=== PATIENT | male | born 1945 | race Caucasian/White ===

== ENCOUNTER → 2023-09-18 09:30 | Outpatient (REF) | payer MEDICARE, OTHER, SELFPAY | LOC: RAD 09:30 | PROVIDERS: ATTENDING PHYSICIAN Internal Medicine | DX: R06.09 Other forms of dyspnea (principal) | CPT/HCPCS: 71046 ==

== ENCOUNTER → 2023-11-17 06:20 | Day surgery (SDC) | payer MEDICARE, OTHER, SELFPAY ==
[2023-11-17 07:43] LABS: Glucose - Point of Care 150 mg/dl (70-99)
== END ==
LOC: GI 06:20
PROVIDERS: ATTENDING PHYSICIAN Internal Medicine Gastroenterology
DX: Z12.11 Encounter for screening for malignant neoplasm of colon (principal); K52.9 Noninfective gastroenteritis and colitis, unspecified; D12.7 Benign neoplasm of rectosigmoid junction; K56.699 Other intestinal obstruction unspecified as to partial versus complete obstruction; K63.89 Other specified diseases of intestine; K64.8 Other hemorrhoids; Z86.0100 Personal history of colon polyps, unspecified
CPT/HCPCS: 45380; 88305; 82962

== ENCOUNTER → 2023-12-15 11:13 | Outpatient (REF) | payer MEDICARE, OTHER, SELFPAY | LOC: HWRAD 11:13 | PROVIDERS: ATTENDING PHYSICIAN Internal Medicine Gastroenterology; FAMILY PHYSICIAN Internal Medicine | DX: K52.9 Noninfective gastroenteritis and colitis, unspecified (principal) | CPT/HCPCS: 74178; Q9967 ==

== ENCOUNTER 2024-09-07 20:49 | Inpatient (IN) | payer MEDICARE, OTHER, SELFPAY ==
[2024-09-07 15:36] VITALS: BP 181/93
[2024-09-07 15:45] VITALS: BP 150/76
[2024-09-07 16:00] VITALS: BP 184/148
[2024-09-07 16:32] VITALS: BP 171/103
[2024-09-07 17:01] LABS: Urine Character Clear (Clear)
[2024-09-07 17:05] LABS: Hematocrit 40.8 % (39.0-52.0); Hemoglobin 14.2 g/dL (13.0-18.0); Mean Corp Hgb Conc. 34.8 g/dL (33.0-37.0); Mean Corpuscular Volume 86.8 fL (80.0-94.0); Nucleated Red Blood Cells % 0 % (-); Platelet Count 126 10^3/uL (130-400); Red Cell Dist. Width 13.3 % (11.5-14.5)
[2024-09-07] MEDS: NSS 1000 IV ×2 (17:06→22:53)
[2024-09-07 17:09] LABS: Urine Red Blood Cell 0-2 /HPF (0-2); Urine Squamous Cell 0-2 /LPF (Few); Urine White Cell 0-2 /HPF (0-5)
[2024-09-07 17:12] LABS: Ammonia < 9 umol/L (9-30)
[2024-09-07 17:18] LABS: ALT (SGPT) 457 U/L (0-50); AST (SGOT) 595 U/L (17-59); Albumin 3.7 g/dl (3.5-5.0); Alkaline Phosphatase 1075 U/L (38-126); Blood Urea Nitrogen 31 mg/dl (9-20); Calcium 10.0 mg/dl (8.4-10.2); Carbon Dioxide 23 mmol/L (22-30); Chloride 97 mmol/L (98-107); Glucose 486 mg/dl (70-99); Lipase 754 U/L (23-300); Potassium 4.9 mmol/L (3.5-5.1); Sodium 130 mmol/L (135-145); Total Protein 6.1 g/dl (6.3-8.2); eGFR > 60.00
[2024-09-07 18:55] LABS: Glucose - Point of Care 390 mg/dl (70-99)
--- NOTE | 2024-09-07 19:05 | ED.GENMED ---
History of Present Illness
General
Chief Complaint: Weakness
Source: patient and family (cousin)
Exam Limitations: none
Time Seen by Provider: 09/07/24 15:40
Nursing documentation reviewed up to this point in time: agreed with
History of Present Illness
History of Present Illness:
Patient to ED with complaint of weakness, poor appetite, abd. distention,jaundice, confusion. Patients cousin called him this AM and found him to be confused. SHe went to see him and he reported the weakness, poor appetite, and distention. She
took him to who advised him to come to ED for jaundice. She states she saw him last approx 2 weeks ago. He has lost approx 10 lbs since then. He denies fever/chills, n/v/d.
Past History
Past History
ED Past Medical History: Cancer (CLL, prostate), GERD, Hypercholesterolemia and NIDDM
ED Past Surgical History: Other (Noncontributory )
Social History
Tobacco: Non-smoker
Alcohol: Occasional
Drug: None
Personal:
Living: with family
Employment: Employed
Family History
Family History: Other (Noncontributory )
Review of Systems
Review of Systems
Allergies reviewed?: Yes
All Other Systems: ROS reviewed and negative except as documented in HPI and ROS
Constitutional: Reports weight loss and fatigue
EENT: Reports no symptoms
Respiratory: Reports cough
Cardiac: Reports no symptoms
ABD/GI: Reports anorexia and other (bloating)
: Reports no symptoms
Musculoskeletal: Reports no symptoms
Skin: Reports other (jaundice)
Neurological: Reports weakness and other (confusion)
Psychiatric: Reports no symptoms
Phy Exam
General Physical Exam
General Presentation: mild distress
General age: appears stated age
General Skin: warm and dry
General Habitus: normal
Cardiovascular Exam
Cardiovascular Exam: regular rate/rhythm and no edema
Pulmonary Exam
Pulmonary Exam: no respiratory distress and chest non tender
Breath Sounds: Crackles: left lower and right lower
Gastrointestinal Exam
Gastrointestinal Exam: normal bowel sounds, soft, no organomegaly, no pulsatile mass and no cva tenderness
Palpation: left upper quadrant: Mild tenderness, left lower quadrant: No tenderness, right upper quadrant: Mild tenderness and right lower quadrant: No tenderness
Neurological Exam
Neurological Exam: alert, oriented x3, CN II-XII intact, no motor deficits, no sensory deficits and speech normal
Musculoskeletal Exam
Musculoskeletal Exam: full ROM and neuro vasc intact
Skin Exam
Skin Exam: warm/dry, no rash and jaundice
Psychiatric Exam
Psychiatric Exam: normal mood/affect
Course
Orders/Labs/Results
Orders:
Orders
09/07/24 Dinner
1800 calorie (15 carb) Diabetic
At Your Request: Full Participation
09/07/24 16:36
CT Abd/pelvis W Iv Cont Urgent
Comment:
Reason For Exam: bloating, jaundice
0.9% Sodium Chloride 1000 ml [Nss] 1,000 ml IV BOLUS
09/07/24 16:47
Ammonia Urgent
Complete Blood Count/With Diff Urgent
Comprehensive Metabolic Panel Urgent
Lipase Urgent
Urinalysis Reflex To Culture Urgent
Date Specimen was Collected: 09/07/24
Time Specimen was Collected: 16:46
Urine Microscopic Reflex Cult Urgent
09/07/24 18:58
Insulin Aspart [NOVOLOG vial] 8 units SC NOW STA
09/07/24 19:08
CR Chest - 2 Views Urgent
Comment:
Reason For Exam: cough
09/07/24 20:32
Admit/Transfer Patient As Directed
Co-Sign Provider:
Level of Care: Inpatient admission
Assign to:: Medical/Surgical
Physician / Group: [facility]
Diagnosis: Hyperglycemia
Reason for Hospitalization: Uncontrolled diabetes
Expected length of stay greater than two midnights?: Yes
ELOS- Estimated Length of Stay in days: 2
I certify the patient meets the requirements for IP care: Yes
PRN Pain Medication Management As Directed
May give lesser potent ordered pain med per pt: Yes
preference::
Protocol:: Medication orders for pain may be administered in a
manner that supports deferring to patient preference
when the pt is:
- Requesting an ordered lesser potent pain medication.
Least to most potent pain medications are defined
as: acetaminophen < NSAID < tramadol < opioids
(morphine, oxycodone, hydromorphone).
- Requesting a lesser dose of the same medication IF
ORDERED.
- Requesting a less intrusive route of administration
if both routes are prescribed by the provider (PO <
IV).
09/07/24 20:34
Code Status As Directed
Resuscitation Status: Full Code
09/07/24 22:32
0.9% Sodium Chloride 1000 ml [Nss] 1,000 ml IV 100 mls/hr
Acetaminophen [Tylenol] 650 mg PO Q4HPRN PRN
Amitriptyline [Elavil] 50 mg PO HS
Bisacodyl [Dulcolax] 10 mg RECTAL [id number] PRN
Docusate W/Senna [Senokot-S] 1 tablet PO BIDPRN PRN
Famotidine [Pepcid] 20 mg PO HS
Glimepiride [Amaryl] 2 mg PO NOW STA
Insulin Glargine Lantus [Lantus] 5 units Subcutaneous Insulin Syringe [Syringe-Insulin] 0 unit SC HS
Ondansetron Injectable [Zofran] 4 mg IV Q6HPRN PRN
Polyethylene Glycol Powder [Miralax] 17 grams PO DAILYPRN PRN
09/07/24 22:32
MRI Abdomen [MR Abdomen W/o & W Contrast] Routine
Comment:
Reason For Exam: liver mass, jaundice, hyperbili,
Recent pill cam endoscopy?: No
Mrcp Without MR [MR Mrcp Without] Routine
Comment:
Reason For Exam: cholestatic pattern w/ elevated lip, eval obstruct
Recent pill cam endoscopy?: No
Activity As Directed
Activity Level: With Assistance
Bedside Glucose Monitoring As Directed
Frequency: AC&HS
Vital Signs As Directed
Frequency: Per unit guidelines
DX Deep Vein Thrombosis Video Routine
09/08/24 06:00
Basic Metabolic Panel IN AM
CA 19-9 [S] IN AM
CEA IN AM
Cardiovascular Evaluation IN AM
Complete Blood Count/No Diff IN AM
Hemoglobin A1c [Glycohemoglobin (HgbA1c)] IN AM
LFT [Bjfau-Nwnl-Dvwqdqf] IN AM
Magnesium IN AM
PSA, Total - Screen IN AM
09/08/24 07:30
Insulin Aspart Corrective Mod [Novolog Flexpen-Moderate Resistance] See Protocol SC AC
09/08/24 08:00
Loratadine [Claritin] 10 mg PO DAILY
Pantoprazole [Protonix] 40 mg PO DAILY
09/08/24 18:00
Atorvastatin [Lipitor] 10 mg PO QPM
Enoxaparin Sodium [Lovenox] 40 mg SC QPM
Abnormal Lab Results
09/07/24 09/07/24 09/07/24
16:47 18:53 19:53
Plt Count 126 L 10^3/uL
(130-400)
Abs Immat Gran (auto) 0.2 H 10^3/uL
(0-0.05)
Absolute Lymphs (auto) 0.9 L 10^3/uL
(1.2-3.4)
Absolute Monos (auto) 1.0 H 10^3/uL
(0.1-0.6)
Immature Gran % 2.0 H %
(0-0.5)
Lymphocytes % 11.1 L %
(20.5-51.1)
Monocytes % 13.1 H %
(1.7-9.3)
Sodium 130 L mmol/L
(135-145)
Chloride 97 L mmol/L
(98-107)
BUN 31 H mg/dl
(9-20)
Glucose 486 H* mg/dl
(70-99)
Total Bilirubin 9.9 H mg/dl
(0.2-1.3)
AST 595 H* U/L
(17-59)
ALT 457 H U/L
(0-50)
Alkaline Phosphatase 1075 H U/L
(38-126)
Ammonia < 9 L umol/L
(9-30)
Total Protein 6.1 L g/dl
(6.3-8.2)
Lipase 754 H U/L
(23-300)
Urine Bacteria (Reflex) Few A
(Negative)
Urine Glucose 4+ A
(Negative)
Urine Albumin (Reflex) 1+ A
(Neg - Trace)
POC Glucose 390 H mg/dl 409 H mg/dl
(70-99) (70-99)
09/07/24 16:47
09/07/24 16:47
Vital Signs
Initial and Last Documented VS:
Initial Vital Signs
Temp Pulse Resp BP Pulse Ox
97.6 F 102 16 181/93 98
09/07/24 15:36 09/07/24 15:36 09/07/24 15:36 09/07/24 15:36 09/07/24 15:36
Last Documented Vital Signs
Temp Pulse Resp BP Pulse Ox
97.8 F 102 20 153/90 98
09/07/24 22:35 09/07/24 22:35 09/07/24 22:35 09/07/24 22:35 09/07/24 22:35
*Pulse Oximetry
SaO2: 98
Oxygen Mode of Delivery: Room air
Patient hypoxic: no
*Critical Care Note
Total Time (30-74mins, 75-104mins- exclusive of procedures): Not Applicable
Update Note
Update Note:
Patient to ED for weakness, confusion, jaundice, abd. distention, anorexia, weight loss x 2 weeks. Labs reviewd. Glucose 486. He has not been on insulin in the past, takes glipizide. Given 1L NSS, BS now 390. Given 8u Novolog sq. LFT elevation
noted: AST 595, ALT 457, ALk Phos 1075. Tbili 9.9. Lipase 754. Abdominal CT completed: Numerous low density lesions throughout liver compatible with hepatic metestatic disease, enlarged periportal, partacaval, gastrohepatic ligament regions
likely metastatic lymphadenopathy. Suspicious lesions on thoracic and lumbar spine, concerning for metastatic disease. Patient follows yearly with Dr. Figueroa for distant history of CLL and prostate CA, Dr. Delaney notified by tiger text of new
findings tonight. Due to weakness, confusion, anorexia, hyperglycemia and LFT elevation, will admit to hospitalist service. Patient and cousin are agreeable to plan.
ED Attending Note
-
Portions of this chart may have been created with voice recognition software.� Occasional wrong word or��sound alike� substitutions may have occurred due to the inherent limitations of voice recognition software.
Discharge Plan
Departure
Patient Disposition: Admit
Date of Disposition: 09/07/24
Time of Disposition: 19:24
Presentation/result/management discussed w/ accepting MD/DO: Hospitalist
Patient with high blood pressure during this ER visit?: No
Condition: Fair
Covid-19: Not Applicable
Discharge Problem:
Weakness, Acute hyperglycemia, Elevated LFTs, Metastatic carcinoma to liver
Interventions
Interventions:
*Risk Screen - Suicide Last Done: 09/07/24 17:12
*General Assessment Last Done: 09/07/24 17:12
*Neglect/Abuse Screening Last Done: 09/07/24 17:12
*ED- Fall Risk Assessment Last Done: 09/07/24 17:12
*Nursing Disposition Last Done: 09/07/24 22:39
ED- Neurological Assessment Last Done: 09/07/24 17:13
ED- Pulmonary Assessment Last Done: 09/07/24 17:13
Discharge Date and Time
Discharge Date/Time: 09/07/24 22:41
[2024-09-07] MEDS: NOVOLOG vial 8 UNITS SC (19:10)
[2024-09-07 19:59] LABS: Glucose - Point of Care 409 mg/dl (70-99)
--- NOTE | 2024-09-07 20:06 | HPS.HSE ---
Family Physician
-
Family Physician: Mindi Almaraz
Chief Complaint
-
Weakness
History of Present Illness
This is a 79-year-old male with past medical history significant for prior prostate cancer and CLL, GERD, day-dlprjao-wwzkxvwur diabetes and hyperlipidemia who presents to the emergency department with ongoing concern for jaundice, intermittent
confusion poor appetite and weakness.
Patient reported his symptoms to his cousin who found him slightly confused and came to see him. He reported weakness poor appetite and abdominal distention. He also reports some weight loss. Patient says he has been having increased thirst and
increased urine output over the last 2 weeks. Cousin found that patient was jaundiced. She took him to urgent care I will advise him to come to the emergency department for evaluation of the jaundice. He has lost approximately 10 pounds. Denies
having any cough fevers or chills. He denies having any diarrhea. He denies any nausea or vomiting. He denies any urinary symptoms. Reports he has been on standard dose of glimepiride 2 mg without any recent changes in this medication or any
other medication.
In the emergency department his blood pressure was 170/100 with a pulse rate of 98 and was satting 98% on room air. He was afebrile with temp of 97.6. His chest x-ray was clear. CBC was unremarkable. His electrolytes show a sodium of 130
potassium of 4.9 with a bicarb of 23. BUN and creatinine at 31 and 1.1 with a blood glucose of 46. He has elevated total bilirubin to 9.9, AST 500 ALT in 450s and alk phos of over 8000 with a lipase of 750. His UA was clear.
CT of the abdomen pelvis showing numerous low-density lesions throughout the liver, compatible with hepatic metastatic disease.
Enlarged lymph nodes in the periportal, portacaval, and gastrohepatic ligament region, likely neoplastic lymphadenopathy.
Splenomegaly, slightly increased since prior CT. No focal splenic lesions are identified.
Subtle small lytic lesions within the visualized thoracic and lumbar spine, suspicious for bony metastatic disease.
Small densities within the perinephric fat bilaterally, new since prior examination, and suspicious for small neoplastic retroperitoneal implants
Medical History
Past Medical History
Past Medical History: Reports Cancer (CLL, prostate cancer), GERD, Hypercholesterolemia and NIDDM
Past Surgical History: Reports Other
Social History
Tobacco: Non-smoker
Alcohol: Occasional
Drug: None
Personal: Single
Living: Alone
Employment: Retired
Family History
Family History: Not pertinent
Allergies / Home Medications
Allergies reflects when Allergies were last updated in [facility].
Home Medications with original date entered in [facility]
Allergy/Medication List:
Allergies
Allergy/AdvReac Type Severity Reaction Status Date / Time
vancomycin (Vancomycin) Allergy RASH/HAND Verified 09/07/24 15:38
BLANCHING
Home Medications
amitriptyline 50 mg tablet 50 mg PO HS 09/24/09
Omeprazole 40 mg tablet, 40 mg p.o. daily
Famotidine 20 mg tablet, 20 mg p.o. daily
Atorvastatin 10 mg tablet, 10 mg p.o. daily
Glimepiride 2 mg tablets, 2 mg p.o. daily
Review of Systems
-
Constitutional: Reports Weight Loss and Fatigue
EENT: Reports No Symptoms
Respiratory: Reports No Symptoms
Cardiac: Reports No Symptoms
Abdomen/GI: Reports Constipated
: Reports No Symptoms
Musculoskeletal: Reports No Symptoms
Skin: Reports No Symptoms
Neurological: Reports No Symptoms
Endocrine: Reports Polyuria and Polydipsia
Hematologic/Lymphatic: Reports No Symptoms
Psych: Reports No Symptoms
Physical Exam
Vital Signs
Vital Signs
Temp Pulse Resp BP Pulse Ox
97.6 F 98 25 171/103 98
09/07/24 15:36 09/07/24 19:00 09/07/24 19:00 09/07/24 16:32 09/07/24 19:08
Physical Exam
General: No Apparent Distress and Poor Appetite
HEENT: NormoCephalic, Moist mucous membranes, Atraumatic and PERRLA
Respiratory: Clear
Cardiac: S1/S2 and Regular Rhythm
Breast: Deferred by me
GI: Soft, Non Tender, Non Distended and Normal Bowel Sounds
Rectal: Deferred by Provider
Genito-urinary: Deferred by me
Musculoskeletal: No Clubbing, No Cyanosis and No Edema
Skin: Jaundice
Neuro: AO x 3 and Nonfocal/grossly intact
Psych: Calm
Laboratory Results
-
09/07/24 16:47
09/07/24 16:47
Laboratory Results
Total Bilirubin 9.9 mg/dl (0.2-1.3) H 09/07/24 16:47
AST 595 U/L (17-59) H* 09/07/24 16:47
ALT 457 U/L (0-50) H 09/07/24 16:47
Alkaline Phosphatase 1075 U/L (38-126) H 09/07/24 16:47
Lipase 754 U/L (23-300) H 09/07/24 16:47
Data Reviewed
-
Diagnostic Radiology: Image Personally Visualized and interpreted and Report Reviewed by me
CT Scan: Report Reviewed by me
Lab Data: Labs Reviewed by me
Old Records: Reviewed
Impression/Plan
-
IMPRESSION:
79-year-old male with history of CLL, prostate cancer, jfu-mqamnez-fsbuwjelq diabetes on glimepiride who presents to the emergency department with a new/recent episode of jaundice, fatigue, and weakness, poor appetite and weight loss probably
improved this year found to have hyperglycemia without DKA and findings of numerous metastatic lesions on CT scan with lesions found in the liver compatible with hepatic metastatic disease as well as subtle small lytic lesions within the visualized
thoracic and lumbar spine suspicious for bony metastatic disease. There are densities in the perinephric fat bilaterally which are new and suspicious for small neoplastic/retroperitoneal implants. He had a colonoscopy last year with removal of
some polyps. Patient said that his prostate cancer was resected over 20 years ago and did not need radiation or adjuvant chemotherapy.
PLAN:
1. Hyperglycemia w/o DKA -likely ongoing for about 2 weeks but exacerbated by high sugar diet of cake today. slightly dehydrated but not markedly so. Sodium 130 corrects to 136 for hyperglycemia.
- admit to med/surg
- 1 L NS bolus given in ED, will continue IV fluids with NS overnight at 100 ml/hr
- given aspart 8units in ED, continue with sliding scale insulin
- will give 4 units of lantus tonight
- a1c in am
- continue his glimepiride for now
- start metformin
2. Metastatic lesions w/ cholestatic pattern and elevated lipase - Unknown primary but likely hepatic, bony/spine and retroperitoneal mets concerning for prostate recurrence vs new pancreatic or colon ca. Complicated by jaundice without evidence of
extrahepatic biliary obstruction.
- oncology consultation
- check psa, cea, ca 19-9
- mri abd w/ w/o contrast
- biopsy [facility] per oncology
- pain control and antiemetics
DVT PX - lovenox sq
Code status - Full Code
[2024-09-07 21:25] VITALS: BP 162/98
[2024-09-07 22:35] VITALS: BP 153/90; BMI 28.7
[2024-09-07 22:36] LABS: Glucose - Point of Care 370 mg/dl (70-99)
[2024-09-07] MEDS: ELAVIL 50 MG PO (22:48)
[2024-09-07] MEDS: PEPCID 20 MG PO (22:53)
[2024-09-07] MEDS: LANTUS 0.05 UNITS SC (22:53)
[2024-09-07] MEDS: AMARYL 2 MG PO (22:53)
[2024-09-08 01:45] LABS: Glucose - Point of Care 357 mg/dl (70-99)
[2024-09-08 07:43] LABS: Glucose - Point of Care 300 mg/dl (70-99)
[2024-09-08 07:55] VITALS: BP 176/96
[2024-09-08] MEDS: PROTONIX 40 MG PO (08:00)
[2024-09-08] MEDS: CLARITIN 10 MG PO (08:00)
[2024-09-08] MEDS: NOVOLOG FLEXPEN-MODERATE RESISTANCE 7 UNITS SC ×2 (08:17→17:02)
[2024-09-08 08:20] LABS: Hematocrit 38.5 % (39.0-52.0); Hemoglobin 13.3 g/dL (13.0-18.0); Mean Corp Hgb Conc. 34.5 g/dL (33.0-37.0); Mean Corpuscular Volume 87.3 fL (80.0-94.0); Platelet Count 122 10^3/uL (130-400); Red Cell Dist. Width 13.3 % (11.5-14.5)
[2024-09-08 08:46] LABS: ALT (SGPT) 435 U/L (0-50); AST (SGOT) 638 U/L (17-59); Albumin 3.2 g/dl (3.5-5.0); Alkaline Phosphatase 1071 U/L (38-126); Blood Urea Nitrogen 23 mg/dl (9-20); Calcium 9.3 mg/dl (8.4-10.2); Carbon Dioxide 26 mmol/L (22-30); Chloride 103 mmol/L (98-107); Estimated Creatinine Clearance 57 ml/min; Glucose 278 mg/dl (70-99); HDL Cholesterol 36 mg/dl; LDL Cholesterol, Calculated 174 mg/dl; Magnesium 2.1 mg/dl (1.6-2.3); Potassium 4.3 mmol/L (3.5-5.1); Sodium 136 mmol/L (135-145); Total Protein 5.5 g/dl (6.3-8.2); Very Low Density Lipoprotein 47 mg/dl (0-30); eGFR > 60.00
[2024-09-08 09:12] LABS: PSA, Total - Screen < 0.06 ng/ml (0.0-4.0)
[2024-09-08 10:49] VITALS: BMI 28.7
[2024-09-08 10:59] LABS: Glycohemoglobin (HgbA1c) 9.1 % (4.0-5.6)
[2024-09-08] MEDS: NOVOLOG FLEXPEN-MODERATE RESISTANCE 5 UNITS SC (12:03)
[2024-09-08 12:04] LABS: Glucose - Point of Care 292 mg/dl (70-99)
--- NOTE | 2024-09-08 12:31 | CON.ONC ---
Consultation
-
Date Consultation Requested: 09/07/24
Date Consultation Performed: 09/08/24
Requesting Provider: Dr. Hurtado
Performing Provider: Dr. Perry
Reason for Consultation: h/o NHL - new adenopathy - liver lesions
Impression
Impression
abnormal CT imaging - liver lesions, periportal, portacaval, and gastrohepatic ligament lymphadenopathy, splenomegaly, small lytic lesions in thoracic and lumbar spinem, small densities within the perinephric fat bilaterally
abnormal LFTs
obstructive jaundice
CLL
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 Orosco
h/p prostate cancer - s/p prostatectomy
Plan
Plan
1. Abnormal CT - liver lesions, adenopathy - unclear etiology
-MRI abdomen pending
-GI consult - ? EGD/EUS - ERCP
-liver biopsy w/ IR
-await pathology
2. CLL / NHL - tx [id number] w/ Dr. Orosco
-hematologic malignancy is on differential as to etiology of radiographic findings - await pathology
Will continue to follow with you
Patient History
History of Present Illness
79y/o male seen in consultation today regarding new adenopathy and liver lesions appreciated on CT imaging.
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 He is followed by Dr. Orosco as an outpt, and was treated for his low grade NHL in 2016
w/ bendamustine/ rituximab, followed by rituximab maintenance, until 2018. Post-treatment PET/CT in April 2017 was MAKR.
Since that time, he has been followed off therapy.
He presented to the [place] ER on 8 w/ weakness, poor appetite, abdominal distention, jaundice, confusion. Labs in the ER revealed significant LFT abnormalities w/ increased total bilirubin of 9.9 w/ direct bili of 8.2. CT imaging revealed
numerous low-density lesions throughout the liver, compatible with hepatic metastatic disease. Enlarged lymph nodes in the periportal, portacaval, and gastrohepatic ligament region, likely neoplastic lymphadenopathy. Splenomegaly, slightly increased
since prior CT. No focal splenic lesions are identified. Subtle small lytic lesions within the visualized thoracic and lumbar spine, suspicious for bony metastatic disease. Small densities within the perinephric fat bilaterally, new since prior
examination, and suspicious for small neoplastic retroperitoneal implants.
An MRI of the abdomen is pending.
Clinically, he feels slightly better this am. He remains lethargic. No SOB or chest pain. No abdominal pain. No fevers or chills. No skin rash. No night sweats.
Past-Medical/Surgical History
PMH:
CLL - dx 2007
NHL - marginal zone lymphoma - 2014 - tx w/ Dr. Kwesi REID - followed by rituximab maintenance - finished 2017
GERD
Hypercholesterolemia
NIDDM
prostate cancer
RA
zoster
PSH:
prostatectomy - 2005
skin biopsy - 2014
colonoscopy
Social History
Tobacco: Non-smoker
Alcohol: Occasional
Family History
Family History: Not pertinent
Allergies: NKDA
Patient Medication
�Medication �Instructions �Recorded �Confirmed �Last Taken �Type
amitriptyline 50 mg tablet 50 mg PO HS 09/24/09 09/20/18 09/19/18 History
ascorbic acid-bioflavonoids 500 2 tab PO Supplement 09/24/09 09/24/09 09/20/18 History
mg-200 mg tablet
calcium 500 mg-vitamin D3 100 1 ea PO 3XW Supplement 09/24/09 11/18/16 09/20/18 History
unit-vitamin K 40 mcg chewable
tablet
esomeprazole magnesium 40 mg 40 mg PO DAILY Gastrointestinal 09/24/09 11/18/16 09/20/18 History
capsule,delayed release (Nexium) Issue
glucosamine HCl 500 mg tablet 3,000 mg PO TID Supplement 09/24/09 11/18/16 09/19/18 History
loratadine 5 mg disintegrating 5 mg PO DAILY 09/24/09 11/18/16 09/20/18 History
tablet (Claritin RediTabs)
multivit with [id number]-OA-[id number]-omega 2 ea PO DAILY Supplement 09/24/09 11/18/16 09/20/18 History
3,6,9 no.3 400 mcg-300 mcg capsule
(Men's 50+ Advanced Multivitamin)
omega-3 fatty acids 100 mg 200 mg PO DAILY Supplement 09/24/09 11/18/16 09/19/18 History
chewable tablet
Active Medications
Generic Name Dose Route Start Last Admin
Trade Name Freq PRN Reason Stop Dose Admin
Acetaminophen 650 mg 09/07/24 22:32
Acetaminophen 325 Mg Tablet PO 10/05/24 22:31
Q4HPRN PRN
mild pain/LEHMAN/temp> 100.4F
Amitriptyline HCl 50 mg 09/07/24 22:32 09/07/24 22:48
Amitriptyline 50 Mg Tablet PO 10/05/24 22:31 50 mg
HS SELENA Administration
Atorvastatin Calcium 10 mg 09/08/24 18:00
Atorvastatin (Lipitor) 10 Mg Tablet PO 10/06/24 17:59
QPM SELENA
Bisacodyl 10 mg 09/07/24 22:32
Bisacodyl 10 Mg Rectal Suppository RECTAL 10/05/24 22:31
[id number] PRN
constipation
Enoxaparin Sodium 40 mg 09/08/24 18:00
Enoxaparin Sodium 40 Mg/0.4 Ml Syringe SC 10/06/24 17:59
QPM SELENA
Famotidine 20 mg 09/07/24 22:32 09/07/24 22:53
Famotidine 20 Mg Tablet PO 10/05/24 22:31 20 mg
HS SELENA Administration
Insulin Glargine 5 units/ 0.05 mls @ 0 mls/hr 09/07/24 22:32 09/07/24 22:53
Device SC 10/05/24 22:31 0.05 mls
HS SELENA Administration
As Directed
Insulin Aspart 0 units 09/08/24 07:30 09/08/24 12:03
Insulin Aspart Moderate Resistance 300 Units/3 Ml Pen.Injctr SC 10/06/24 07:29 5 units
AC SELENA Administration
Protocol
Loratadine 10 mg 09/08/24 08:00 09/08/24 08:00
Loratadine 10 Mg Tablet PO 10/06/24 07:59 10 mg
DAILY SELENA Administration
Ondansetron HCl 4 mg 09/07/24 22:32
Ondansetron 4 Mg/2 Ml Vial IV 10/05/24 22:31
Q6HPRN PRN
nausea and vomiting
Pantoprazole Sodium 40 mg 09/08/24 08:00 09/08/24 08:00
Pantoprazole 40 Mg Delayed Release Tablet PO 10/06/24 07:59 40 mg
DAILY SELENA Administration
Polyethylene Glycol 17 grams 09/07/24 22:32
Polyethylene Glycol Powder 17 Grams Packet PO 10/05/24 22:31
DAILYPRN PRN
constipation
Senna/Docusate Sodium 1 tablet 09/07/24 22:32
Docusate W/Senna (Elisabet-Colace) Tablet PO 10/05/24 22:31
BIDPRN PRN
constipation
Review of Systems
-
A ROS was performed w/ pertinent findings as per HPI.
Physical Exam
-
General: Well Developed and No Apparent Distress
HEENT: Jaundice
Cardiology: Normal Sinus Rhythm
Pulmonary: Clear
GI: Soft
Extremities: No C/C/E
Neurology: Non Focal
Labs
Lab Results
WBC 7.9 10^3/uL (4.8-10.8) 09/08/24 06:47
RBC 4.41 10^6/uL (4.70-6.10) L 09/08/24 06:47
Hgb 13.3 g/dL (13.0-18.0) 09/08/24 06:47
Hct 38.5 % (39.0-52.0) L 09/08/24 06:47
MCV 87.3 fL (80.0-94.0) 09/08/24 06:47
MCH 30.2 pg (27.0-31.0) 09/08/24 06:47
MCHC 34.5 g/dL (33.0-37.0) 09/08/24 06:47
RDW 13.3 % (11.5-14.5) 09/08/24 06:47
Plt Count 122 10^3/uL (130-400) L 09/08/24 06:47
MPV 10.6 fL (7.4-10.4) H 09/08/24 06:47
Abs Immat Gran (auto) 0.2 10^3/uL (0-0.05) H 09/07/24 16:47
Absolute Neuts (auto) 5.7 10^3/uL (1.4-6.5) 09/07/24 16:47
Absolute Lymphs (auto) 0.9 10^3/uL (1.2-3.4) L 09/07/24 16:47
Absolute Monos (auto) 1.0 10^3/uL (0.1-0.6) H 09/07/24 16:47
Absolute Eos (auto) 0.0 10^3/uL (0-0.7) 09/07/24 16:47
Absolute Basos (auto) 0.0 10^3/uL (0-0.2) 09/07/24 16:47
Immature Gran % 2.0 % (0-0.5) H 09/07/24 16:47
Neutrophils % 73.1 % (42.2-75.2) 09/07/24 16:47
Lymphocytes % 11.1 % (20.5-51.1) L 09/07/24 16:47
Monocytes % 13.1 % (1.7-9.3) H 09/07/24 16:47
Eosinophils % 0.3 % (0-6) 09/07/24 16:47
Basophils % 0.4 % (0-2) 09/07/24 16:47
Creatinine 1.0 mg/dL (0.7-1.3) 09/08/24 06:47
Vital Signs
Vital Signs
Temp Pulse Resp BP Pulse Ox
98.6 F 92 18 176/96 94
09/08/24 07:55 09/08/24 07:55 09/08/24 07:55 09/08/24 07:55 09/08/24 07:55
--- NOTE | 2024-09-08 13:05 | W.PN.HOSP.TC ---
Addendum entered and electronically signed by Veto Morris MD 09/08/24 17:30:
see update note
Original Note:
Today's Communication/Plan
-
MRI abdomen w/ and w/o contrast pending
Sliding scale insulin
Continue to monitor for blood sugar
Assessment / Plan
Assessment / Plan
79 y.o Male with past medical history of chronic lymphocytic leukemia, prostate cancer, GERD, hypercholesterolemia, Spe-Qhnexwb-Epxkremdq Diabetes Mellitus presents to the emergency department with ongoing concern for weakness, jaundice,
intermittent confusion poor appetite, and weight loss. Increased thirst and increased urine output over the last 2 weeks also reported. At ER bp was 170/100. elevated total bilirubin to 9.9, AST 595 ALT in 457� and Alkaline Phosphatase of over 1075
with a lipase of 754. Glucose 486.
#Hyperglycemia (w/o DKA)
#NIDDM
-Increased thirst and increased urine output over the last 2 weeks
-Glucose 486
-Urine glucose 4+
-Sodium 130 ---> 136 for hyperglycemia.�
-Sliding insulin scale
-glimepiride continued
-metformin started
#Elevated LFTs, Metastatic Disease, primary unknown, likely metastatic
Thrombcytopenia 126L
AST 595 ALT in 457� and�ALP 1075 (cholestatic pattern)
Bilirubin 9.9
Lipase of 754
CT scan:
Numerous low-density lesions throughout the liver, compatible with hepatic metastatic disease.
Enlarged lymph nodes in the periportal, portacaval, and gastrohepatic ligament region, likely neoplastic lymphadenopathy.
Subtle small lytic lesions within the visualized thoracic and lumbar spine, suspicious for bony metastatic disease.
Small densities within the perinephric fat bilaterally, new since prior examination, and suspicious for small neoplastic retroperitoneal implants.
Chest X ray
Left hilar shadow appears to be enlarged. Band of increased density in the left perihilar region, suggesting atelectasis.
Subtle increased density in the posterior mid to lower lungs on the lateral view, but poorly defined.
Findings raise concern for a left central neoplasm
-MRI abd w and w/o contrast pending
-PSA, CEA, CA 19-9
-acetaminophen 650 pain control, ondasetrol hcl antiemetic
-Oncology following
-GI consult for EGD/EUS- ERCP?
-IR consult for Liver Biopsy?
DVT prophylaxis- Lovenox
Full Code
Anticipated Discharge: > 48 hours
Subjective/Interval History
-
Date of Service: September 08, 2024
The patient no longer reports shortness of breath and weakness. He says he feels fine. Patient's son was updated on patient's current status.
Objective Data
-
Labs:
Laboratory Results
09/08/24
06:47
WBC 7.9
Hgb 13.3
Hct 38.5 L
Plt Count 122 L
Sodium 136
Potassium 4.3
Chloride 103
Carbon Dioxide 26
BUN 23 H
Creatinine 1.0
Glucose 278 H
Calcium 9.3
Total Bilirubin 9.6 H
AST 638 H*
ALT 435 H
Alkaline Phosphatase 1071 H
Vital Signs:
Vital Signs
Temp Pulse Resp BP Pulse Ox
98.6 F 92 18 176/96 94
09/08/24 07:55 09/08/24 07:55 09/08/24 07:55 09/08/24 07:55 09/08/24 07:55
I&O
09/07/24 09/08/24 09/09/24
06:59 06:59 06:59
Intake Total 1180 / 1180
Output Total 1100 / 1100
Balance 80 / 80
Review of Systems
-
History Source: Patient
Constitutional: Reports Other (Denies weakness, fever, fatigue)
EENT: Reports No Symptoms Reported
Respiratory: Reports Other (Denies cough, trouble breathing)
Cardiac: Reports Other (Denies chest pain, palpitations, orthopnea)
Abdomen/GI: Reports Other (Denies abdominal pain, vomiting acholic stool)
Musculoskeletal: Reports Other (Denies muscle weakness, edema)
Skin: Reports Other
Neuro: Reports Other (Denies weakness, headache, numbness)
Endocrine: Reports Polyuria
Hematologic / Lymphatic: Reports Other (Denies bleeding)
Physical Exam
-
General: No Apparent Distress, Comfortable and Conversant
HEENT: Normocephalic, Atraumatic and Other (Icteric sclera)
Respiratory: Clear to Auscultation and Non Labored Respirations
Cardiac: Regular Rhythm and S1/S2
GI: Soft, Nontender and Distended
Rectal: Deferred by Provider
Genito-urinary: No Costovertebral Tender
Musculoskeletal: No Clubbing, No Cyanosis and No Edema
Skin: Warm, Jaundice and IV Access / Catheter Site
Neuro: AO x 3 and No Motor Deficits
Psych: Calm
--- NOTE | 2024-09-08 14:40 | W.PN.UPDATE ---
Update Note
Progress Note Update
Uncontrolled DM c/b hyperglycemia
-Fortunatly without signs of DKA/HHNK
-IVF
-Short/Long acting insulin
-SSI
-Accucheck
-BG 140-180
-CCDiet
Hyponatremia/Hypochloremia
-Resolved
Hx of CLL
-Treated and in remission
Metastatic lesions with cholestatic pattern w/ sutle lytic lesion (thoracic/lumbar)
-MRI Abdomen confirmed Hep mets
-Local lymph node involvement
-Unclear primary
-CEA pending
-CA19-9 pending
-PSA <0.06
-Will need node bx
-Consult IR
-Can check CT chest
-Daily LFT trend
-+/- bone scan
Will need Onc follow up
[2024-09-08 15:55] VITALS: BP 171/93
[2024-09-08 16:52] LABS: Glucose - Point of Care 310 mg/dl (70-99)
[2024-09-08] MEDS: LIPITOR 10 MG PO (17:02)
[2024-09-08] MEDS: LOVENOX 40 MG SC (17:02)
[2024-09-08] MEDS: NOVOLOG FLEXPEN 5 UNITS SC (17:11)
--- NOTE | 2024-09-08 17:55 | CON.GI ---
Consultation
-
Date/Time Consultation Requested: 09/08/2024, 5pm
Date/Time Consultation Performed: 09/08/2024, 6pm
Requesting Provider: Dr. Anna
Performing Provider: Dr. Denny
Reason for Consultation: elevated bili
Medical History
Chief Complaint / HPI
Chief Complaint: weakness
History of Present Illness:
79-year-old male past medical history as below presenting with jaundice, confusion, weakness, weight loss. Denies abdominal pain or pruritus. Underwent a CT and MRI which show liver lesions, enlarged lymph nodes suggesting shirley mets, gallstones
and gallbladder wall thickening likely reactive. On the MRI, there is no intra or extrahepatic ductal dilation and no pancreatic duct dilation. Bilirubin 9.
Past Medical History
Past Medical History: Cancer (CLL, prostate Ca), GERD, Hypercholesterolemia and NIDDM
Past Surgical History: Urological (prostate)
Social History
Tobacco: Non-Smoker
Alcohol: Occasional
Family History
Family History: Reviewed & Not Pertinent
Allergies / Home Medications
Allergy/AdvReac Type Severity Reaction Status Date / Time
vancomycin (Vancomycin) Allergy RASH/HAND Verified 09/07/24 15:38
BLANCHING
�Medication �Instructions �Recorded
amitriptyline 50 mg tablet 50 mg PO HS 09/24/09
ascorbic acid-bioflavonoids 500 2 tab PO Supplement 09/24/09
mg-200 mg tablet
calcium 500 mg-vitamin D3 100 1 ea PO 3XW Supplement 09/24/09
unit-vitamin K 40 mcg chewable
tablet
esomeprazole magnesium 40 mg 40 mg PO DAILY Gastrointestinal 09/24/09
capsule,delayed release (Nexium) Issue
glucosamine HCl 500 mg tablet 3,000 mg PO TID Supplement 09/24/09
loratadine 5 mg disintegrating 5 mg PO DAILY 09/24/09
tablet (Claritin RediTabs)
multivit with ho-AN-vivksfeq-omega 2 ea PO DAILY Supplement 09/24/09
3,6,9 no.3 400 mcg-300 mcg capsule
(Men's 50+ Advanced Multivitamin)
omega-3 fatty acids 100 mg 200 mg PO DAILY Supplement 09/24/09
chewable tablet
Review of Systems
-
All other systems: Unreviewed
Vital Signs
Temp Pulse Resp BP Pulse Ox
99.0 F 105 16 171/93 95
09/08/24 15:55 09/08/24 15:55 09/08/24 15:55 09/08/24 15:55 09/08/24 15:55
Physical Exam
Exam
General: Well Developed
HEENT: Other (icteric)
Respiratory: Clear
Cardiac: S1/S2
GI: Non Tender and Non Distended
Genito-urinary: No Costovertebral Tender
Musculoskeletal: No Clubbing
Skin: Warm
Neuro: AO x 3
Hematologic/Lymphatic: No Lymphadenopathy
Psych: Calm
Results
WBC 7.9 10^3/uL (4.8-10.8) 09/08/24 06:47
Hgb 13.3 g/dL (13.0-18.0) 09/08/24 06:47
Hct 38.5 % (39.0-52.0) L 09/08/24 06:47
MCV 87.3 fL (80.0-94.0) 09/08/24 06:47
Plt Count 122 10^3/uL (130-400) L 09/08/24 06:47
Absolute Neuts (auto) 5.7 10^3/uL (1.4-6.5) 09/07/24 16:47
Sodium 136 mmol/L (135-145) 09/08/24 06:47
Potassium 4.3 mmol/L (3.5-5.1) 09/08/24 06:47
Chloride 103 mmol/L (98-107) 09/08/24 06:47
Carbon Dioxide 26 mmol/L (22-30) 09/08/24 06:47
BUN 23 mg/dl (9-20) H 09/08/24 06:47
Creatinine 1.0 mg/dL (0.7-1.3) 09/08/24 06:47
Calcium 9.3 mg/dl (8.4-10.2) 09/08/24 06:47
Total Bilirubin 9.6 mg/dl (0.2-1.3) H 09/08/24 06:47
AST 638 U/L (17-59) H* 09/08/24 06:47
ALT 435 U/L (0-50) H 09/08/24 06:47
Alkaline Phosphatase 1071 U/L (38-126) H 09/08/24 06:47
Lipase 754 U/L (23-300) H 09/07/24 16:47
Diagnostic Image Results:
Prior GI Procedures:
EGD:
Colonoscopy:
Assessment / Plan
-
79-year-old male presenting with jaundice, weakness, weight loss, confusion found to have metastatic malignancy unclear etiology. GI asked to consult from oncology regarding role for ERCP. Reviewing imaging, there is no intra or extrahepatic duct
dilation. There is no role for ERCP at this time. I sent a message to oncology and hospital team. GI will sign off. Please call with questions.
-
-
Thank you for consultation and allowing me to participate in the patient's care. Please call the manager distribution GI physician during the after hours with any questions or concerns.
[2024-09-08 21:36] LABS: Glucose - Point of Care 254 mg/dl (70-99)
[2024-09-08] MEDS: PEPCID 20 MG PO (21:45)
[2024-09-08] MEDS: ELAVIL 50 MG PO (21:45)
[2024-09-08] MEDS: LANTUS 0.15 UNITS SC (21:45)
[2024-09-08 23:55] VITALS: BP 178/88
--- NOTE | 2024-09-09 07:01 | W.PN.ONC2 ---
Today's Communication / Plan
-
await pathology for next steps in management
I called son, Richard [phone] to provide updates and answered questions
Impression
Impression
abnormal CT imaging - liver lesions, periportal, portacaval, and gastrohepatic ligament lymphadenopathy, splenomegaly, small lytic lesions in thoracic and lumbar spinem, small densities within the perinephric fat bilaterally
abnormal LFTs-Tbili ~9.6 w transaminitis -jaundice
CLL
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 Orosco
h/p prostate cancer - s/p prostatectomy
uncontrolled DM
Plan
Plan
1. Abnormal CT - liver lesions, adenopathy - unclear etiology
-MRI with innumerable hepatic mets, enlarged periportal and portacaval LNs, splenomegaly, possible spine/rib mets
-Normal PSA, follow Ca 19.9, CEA
-appreciate GI input - no role for EGD/EUS - ERCP
-liver biopsy w/ IR, await pathology
2. CLL / NHL - tx 8866-2207 w/ Dr. Orosco
-hematologic malignancy is on differential as to etiology of radiographic findings - await pathology
Will continue to follow with you
Subjective/Objective
Subjective
no new complaints
afebrile
denies pain or bleeding
Vital Signs:
Vital Signs
Temp Pulse Resp BP Pulse Ox
98.7 F 106 20 178/88 95
09/08/24 23:55 09/08/24 23:55 09/08/24 23:55 09/08/24 23:55 09/08/24 23:55
Lab Results:
Laboratory Data
WBC 7.9 10^3/uL (4.8-10.8) 09/08/24 06:47
Hgb 13.3 g/dL (13.0-18.0) 09/08/24 06:47
Plt Count 122 10^3/uL (130-400) L 09/08/24 06:47
eGFR > 60.00 09/08/24 06:47
Physical Exam
HEENT: Moist Mucous Membranes; No Jaundice
Pulmonary: Other (unlabored)
GI: Soft
Extremities: Pulses Present
[2024-09-09 07:20] VITALS: BP 160/90
[2024-09-09 07:59] LABS: Glucose - Point of Care 248 mg/dl (70-99)
[2024-09-09] MEDS: NOVOLOG FLEXPEN-MODERATE RESISTANCE 3 UNITS SC ×3 (08:13→17:17)
[2024-09-09] MEDS: NOVOLOG FLEXPEN 5 UNITS SC ×2 (08:14→17:18)
[2024-09-09] MEDS: CLARITIN 10 MG PO (08:14)
[2024-09-09] MEDS: PROTONIX 40 MG PO (08:15)
[2024-09-09] MEDS: FLUSH (NSS) 1 FLUSH IV (08:15)
[2024-09-09 08:42] LABS: Hematocrit 38.3 % (39.0-52.0); Hemoglobin 13.5 g/dL (13.0-18.0); Mean Corp Hgb Conc. 35.2 g/dL (33.0-37.0); Mean Corpuscular Volume 86.3 fL (80.0-94.0); Platelet Count 119 10^3/uL (130-400); Red Cell Dist. Width 13.4 % (11.5-14.5)
[2024-09-09 10:10] VITALS: BP 160/94; PULSE 101
[2024-09-09 10:23] LABS: ALT (SGPT) 497 U/L (0-50); Albumin 3.3 g/dl (3.5-5.0); Blood Urea Nitrogen 23 mg/dl (9-20); Calcium 9.3 mg/dl (8.4-10.2); Carbon Dioxide 25 mmol/L (22-30); Chloride 102 mmol/L (98-107); Estimated Creatinine Clearance 57 ml/min; Glucose 240 mg/dl (70-99); Potassium 4.2 mmol/L (3.5-5.1); Sodium 134 mmol/L (135-145); Total Protein 5.6 g/dl (6.3-8.2); eGFR > 60.00
[2024-09-09 10:43] LABS: AST (SGOT) 755 U/L (17-59); Alkaline Phosphatase 1084 U/L (38-126)
[2024-09-09 11:56] LABS: INR 1.18; PT 15.3 Sec (11.4-14.6)
[2024-09-09 12:02] LABS: Glucose - Point of Care 240 mg/dl (70-99)
[2024-09-09] MEDS: NOVOLOG FLEXPEN SC (12:46)
[2024-09-09 15:19] VITALS: BP 173/103
[2024-09-09 15:49] VITALS: BP 173/103
--- NOTE | 2024-09-09 16:12 | CM ---
Alert awake oriented patient who lives alone in a 2 story home with 2 step to enter and 12 steps to bed and bathroom. He is independent in driving and in all activities of daily living.He was offered VN he declined need.He has son and cousin who are
supportive.
No VN hx / No SNF history
Pharmacy [facility]
PCP DR Almaraz
PLAN Home Declined VN
[2024-09-09 16:32] LABS: Glucose - Point of Care 243 mg/dl (70-99)
[2024-09-09 16:35] VITALS: BP 175/98
--- NOTE | 2024-09-09 16:37 | PTCARENOTE ---
Pt AAO x3, but forgetful; confused conversation at times. DOBSON randomly; OOB to chair with assist x1-2/walker, very unsteady w/OOB activity. Pt denies c/o dizziness w/OOB activity. VSS. On room air- pulse ox 96%, no SOB noted. Abd large, rounded,
becca PO; appetite fair. Pt aware of NPO past midnight 09/10 , for IR procedure. Voids clear dark james urine in urinal. Jaundiced, afebrile. Resting in bed at present. Will continue to monitor.
[2024-09-09] MEDS: LOVENOX 40 MG SC (17:18)
[2024-09-09] MEDS: LIPITOR 10 MG PO (17:19)
[2024-09-09] MEDS: ZESTRIL 10 MG PO (17:27)
[2024-09-09 17:33] LABS: CEA 3.50 ng/ml
--- NOTE | 2024-09-09 17:40 | W.PN.HOSP.TC ---
Addendum entered and electronically signed by Timoteo Lala MD 09/09/24 22:33:
Attending Addendum-
I saw and evaluated the patient. I reviewed the resident�s note and agree with findings and plan as documented in the resident�s note. Sub: complains f RUQ pain. no fevers chills. Full 12 point ROS reviewed and negative except as documented Exam:
Vitals reviewed in chart GEN-NAD HEENT- b/l scleral icterus heart RRR lungs clear abd distended pos BS TTP RUQ hepatomegaly LE trace b/l LE edema
Plan:
# Severe Hyperglycemia w/o DKA
-uncontrolled
-cont new Lantus/Novolog 20/06
-SSI
-HBA1c- 9.1
-DM MEATMAN c/s
-DC glimepiride
-start metformin on DC
# Metastatic lesions w/ cholestatic pattern with bony/spine and retroperitoneal mets with jaundice without evidence of extrahepatic biliary obstruction.
- oncology input appreciated
- check psa, cea, ca 19-9 -neg
- MRI abd w/ w/o contrast -Innumerable hepatic metastases.Enlarged periportal and portacaval lymph nodes suggesting shirley metastases. Small nodular foci in the bilateral perinephric fat concerning for metastatic implants.
-Cholelithiasis. Gallbladder wall thickening, likely reactive.
-Splenomegaly
-Signal alteration in the spine and bilateral ribs, most suspicious for osseous metastatic disease.
- liver bx in AM
- pain control and antiemetics
- worsening transaminitis and hyperbilirubinemia - repeat labs in am
- GI - no role for ERCP
- last colon 11/17/23- no malig found on path
# Hyponatremia
- cont to monitor
- repeat BMP in am
# H/O CLL marginal t zone
# HLD- cont atorvastatin
# Depression- cont elavil
# GERD- cont famotidine and pantoprazole
# HTN- cont lisinopril
DVT PX - lovenox sq
Code status - Full Code
ACP
Patient consented to discuss, was alone, d/w son, time spent explanation of advance directives, changes in health status, patient�s health care wishes if the patient becomes unable to make health decisions, goals of care, code status, and prognosis
'ill do what needs to be done'- 16 minutes
Time spent coordinating care, review of plan of care with resident, personally reviewed previous records in EMR, med rec, labs, radiology, d/w nursing, family total time documented is exclusive of any additional time listed that was spent in advance
care planning discussion -�51 minutes
Original Note:
Today's Communication/Plan
-
Continue sliding scale insulin
Continue to monitor for blood sugar
Diabetic Management consult
For liver biopsy tomorrow
Considering Chest CT
Assessment / Plan
Assessment / Plan
79 y.o Male with past medical history of chronic lymphocytic leukemia, prostate cancer, GERD, hypercholesterolemia, Hsp-Ibdtuji-Wvnpylncp Diabetes Mellitus presents to the emergency department with ongoing concern for weakness, jaundice,
intermittent confusion poor appetite, and weight loss. Increased thirst and increased urine output over the last 2 weeks also reported. At ER bp was 170/100. elevated total bilirubin to 9.9, AST 595 ALT in 457� and Alkaline Phosphatase of over 1075
with a lipase of 754. Glucose 486.
#Hyperglycemia (w/o DKA)
#NIDDM
-Polydipsia, polyuria
--Urine glucose 4+
-Glucose 486---->240 today
-Sodium 134 ---> 137 for hyperglycemia.�
-Sliding insulin scale
-Diabetes Management by MEATMAN
-Diabetes Education Consult
-Continue to monitor glucose
#Elevated LFTs, Metastatic Disease, primary unknown, likely metastatic
Thrombcytopenia 126L
AST 595 ALT in 457� and�ALP 1075-----> 755, 497,1084
Total Bilirubin 9.9---> 13.7
Direct bilirubin 8.2
Lipase of 754
CT scan:
Numerous low-density lesions throughout the liver, compatible with hepatic metastatic disease.
Enlarged lymph nodes in the periportal, portacaval, and gastrohepatic ligament region, likely neoplastic lymphadenopathy.
Subtle small lytic lesions within the visualized thoracic and lumbar spine, suspicious for bony metastatic disease.
Small densities within the perinephric fat bilaterally, new since prior examination, and suspicious for small neoplastic retroperitoneal implants.
Chest X ray
Left hilar shadow appears to be enlarged. Band of increased density in the left perihilar region, suggesting atelectasis.
Subtle increased density in the posterior mid to lower lungs on the lateral view, but poorly defined.
Findings raise concern for a left central neoplasm
MRI abd w and w/o contrast yesterday: Innumerable hepatic metastases. Enlarged periportal and portacaval lymph nodes suggesting shirley metastases. Small nodular foci in the bilateral perinephric fat concerning for metastatic implants.
-CEA- 3.50
- for Liver Biopsy tomorrow
-CA 19-9 pending
-to consider chest CT as recommended
-acetaminophen 650mg pain control, ondasetrol hcl antiemetic
-Oncology following
#Hypertension
160-170's / 90-100's
-Lisinopril 10mg started
DVT prophylaxis- Lovenox
Full Code
Anticipated Discharge: > 48 hours
Subjective/Interval History
-
Date of Service: September 09, 2024
The patient reports to still have polydipsia and polyuria. He has no other complaints, but his son noted that the patient had a period of confusion the day prior and difficulty breathing when changing position.�
Objective Data
-
Labs:
Laboratory Results
09/09/24 09/09/24 09/09/24
07:39 09:25 11:39
WBC 7.3
Hgb 13.5
Hct 38.3 L
Plt Count 119 L
PT 15.3 H
INR 1.18
Sodium Cancelled 134 L
Potassium Cancelled 4.2
Chloride Cancelled 102
Carbon Dioxide Cancelled 25
BUN Cancelled 23 H
Creatinine Cancelled 1.0
Glucose Cancelled 240 H
Calcium Cancelled 9.3
Total Bilirubin Cancelled 13.7 H
AST Cancelled 755 H*
ALT Cancelled 497 H
Alkaline Phosphatase Cancelled 1084 H
Vital Signs:
Vital Signs
Temp Pulse Resp BP Pulse Ox
97.9 F 103 16 175/98 96
09/09/24 15:19 09/09/24 17:27 09/09/24 15:19 09/09/24 17:27 09/09/24 16:35
I&O
09/08/24 09/09/24 09/10/24
06:59 06:59 06:59
Intake Total 1180 / 1180 1200 / 1200 990 / 990
Output Total 1100 / 1100 1740 / 1740 850 / 850
Balance 80 / 80 -540 / -540 140 / 140
Review of Systems
-
History Source: Patient
Constitutional: Reports Other (Denies weakness, fever, fatigue)
EENT: Reports No Symptoms Reported
Respiratory: Reports Other (Denies cough)
Cardiac: Reports Other (Denies chest pain, palpitations, orthopnea)
Abdomen/GI: Reports Other (Denies abdominal pain, vomiting, acholic stool)
Genitourinary: Reports Other (Denies difficulty voiding)
Musculoskeletal: Reports Other (Denies muscle weakness, edema)
Neuro: Reports Other (Denies weakness, headache, numbness)
Endocrine: Reports Polyuria
Hematologic / Lymphatic: Reports Other (Denies bleeding)
Physical Exam
-
General: No Apparent Distress, Comfortable and Conversant
HEENT: Normocephalic, Atraumatic and Other (Icteric sclera)
Respiratory: Clear to Auscultation and Non Labored Respirations
Cardiac: Regular Rhythm and S1/S2
GI: Soft, Nontender and Distended
Rectal: Deferred by Provider
Genito-urinary: No Costovertebral Tender
Musculoskeletal: No Clubbing, No Cyanosis and No Edema
Skin: Warm and Jaundice
Neuro: AO x 3 and No Motor Deficits
Psych: Calm
[2024-09-09 22:46] LABS: Glucose - Point of Care 256 mg/dl (70-99)
[2024-09-09 23:44] VITALS: BP 135/82
[2024-09-09] MEDS: ELAVIL 50 MG PO (23:55)
[2024-09-09] MEDS: PEPCID 20 MG PO (23:55)
[2024-09-10] VITALS (17 sets, daily range): BP systolic 106–177; BP diastolic 69–95
[2024-09-10] MEDS: LANTUS SC (00:19)
[2024-09-10] MEDS: LANTUS 0.07 UNITS SC (00:35)
[2024-09-10 00:39] LABS: Glucose - Point of Care 252 mg/dl (70-99)
[2024-09-10 01:46] LABS: CA 19-9 403 U/mL (<=35)
[2024-09-10 06:12] LABS: Glucose - Point of Care 225 mg/dl (70-99)
[2024-09-10] MEDS: NOVOLOG FLEXPEN-MODERATE RESISTANCE 3 UNITS SC ×2 (06:20→13:33)
[2024-09-10] MEDS: NOVOLOG FLEXPEN SC (08:26)
[2024-09-10 08:51] LABS: Hematocrit 41.5 % (39.0-52.0); Hemoglobin 14.4 g/dL (13.0-18.0); Mean Corp Hgb Conc. 34.7 g/dL (33.0-37.0); Mean Corpuscular Volume 86.3 fL (80.0-94.0); Platelet Count 126 10^3/uL (130-400); Red Cell Dist. Width 13.6 % (11.5-14.5)
--- NOTE | 2024-09-10 09:02 | W.PN.ONC2 ---
Today's Communication / Plan
-
follow path
continue GOC
Impression
Impression
abnormal CT imaging - liver lesions, periportal, portacaval, and gastrohepatic ligament lymphadenopathy, splenomegaly, small lytic lesions in thoracic and lumbar spinem, small densities within the perinephric fat bilaterally
abnormal LFTs-Tbili ~9.6 w transaminitis -jaundice
CLL
marginal zone lymphoma - tx 3404-7380 - BR/ rituximab maintenance - Dr. Orosco
h/p prostate cancer - s/p prostatectomy
uncontrolled DM
Plan
Plan
1. Abnormal CT - liver lesions, adenopathy - unclear etiology
-MRI with innumerable hepatic mets, enlarged periportal and portacaval LNs, splenomegaly, possible spine/rib mets
-Normal PSA and CEA, Ca 19.9 elevated 403
-appreciate GI input - no role for EGD/EUS - ERCP
-liver biopsy w/ IR, await pathology
-I called Richard, son to provide updates and answer questions then met with Richard at the bedside to discuss palliative care and comfort focused care. Richard is in the process of advanced care planning with his father. Case management contact information
provided to start setting pt up for help after discharge since he lives alone
2. CLL / NHL - tx [id number] w/ Dr. Orosco
-hematologic malignancy is on differential as to etiology of radiographic findings - await pathology
Will continue to follow with you
Subjective/Objective
Subjective
SOB
Vital Signs:
Vital Signs
Temp Pulse Resp BP Pulse Ox
98.5 F 111 18 147/94 98
09/10/24 07:35 09/10/24 07:35 09/10/24 07:35 09/10/24 07:35 09/10/24 07:35
Lab Results:
Laboratory Data
WBC 10.1 10^3/uL (4.8-10.8) 09/10/24 08:28
Hgb 14.4 g/dL (13.0-18.0) 09/10/24 08:28
Plt Count 126 10^3/uL (130-400) L 09/10/24 08:28
PT 15.3 Sec (11.4-14.6) H 09/09/24 11:39
INR 1.18 09/09/24 11:39
eGFR > 60.00 09/09/24 09:25
Physical Exam
HEENT: Jaundice and Moist Mucous Membranes
Pulmonary: Other (dyspenea with conversation)
GI: Soft and Distended
Extremities: Pulses Present
[2024-09-10] MEDS: ZESTRIL 10 MG PO (09:08)
[2024-09-10] MEDS: CLARITIN 10 MG PO (09:08)
[2024-09-10] MEDS: PROTONIX 40 MG PO (09:08)
--- NOTE | 2024-09-10 09:40 | W.PN.HOSP.TC ---
Addendum entered and electronically signed by Timoteo Lala MD 09/10/24 21:46:
Attending Addendum-
I saw and evaluated the patient. I reviewed the resident�s note and agree with findings and plan as documented in the resident�s note. Sub: seen post liver bx, feels fatigued and hungry. seen with son present. no fevers chills. Full 12 point ROS
reviewed and negative except as documented Exam: Vitals reviewed in chart GEN-NAD jaundiced, HEENT- b/l scleral icterus heart RRR lungs clear abd distended pos BS TTP RUQ +HSM incision RUQ CDI, LE trace b/l LE edema
Plan:
# Severe Hyperglycemia w/o DKA
-uncontrolled
-increase Lantus/Novolog 20/06->23/09
-SSI
-HBA1c- 9.1
-DM MACHINE I CUTTER c/s
-DC glimepiride
# Metastatic lesions w/ dominant cholestatic pattern with possible bony/spine and retroperitoneal mets with jaundice without evidence of extrahepatic biliary obstruction and lung mass
- oncology input appreciated
- possibly lung primary
- psa, cea-neg
- ca 19-9 - likely elevated due to impaired bile blow from hep mets
- MRI abd w/ w/o contrast -Innumerable hepatic metastases.Enlarged periportal and portacaval lymph nodes suggesting shirley metastases. Small nodular foci in the bilateral perinephric fat concerning for metastatic implants.
-Cholelithiasis. Gallbladder wall thickening, likely reactive.
-Splenomegaly
-Signal alteration in the spine and bilateral ribs, most suspicious for osseous metastatic disease.
- liver bx 09/10 by IR- path - P
- pain control and antiemetics
- improving transaminitis but increased hyperbilirubinemia - repeat labs in am
- GI - reconsult may benefit from ERCP
- last colon 11/17/23- no malig found on path
- hold statin
# Hyponatremia
- resolved
- repeat BMP in am
# H/O CLL marginal t zone
# HLD- hold atorvastatin
# Depression- cont elavil
# GERD- cont famotidine and pantoprazole
# HTN- cont lisinopril
DVT PX - lovenox sq
Code status - Full Code d/w son would like to reconsider based on liver bx results
Dispo-DC to SNF in am
Time spent coordinating care, review of plan of care with resident, personally reviewed records in EMR, med rec, consults, notes, labs, radiology, d/w nursing and son � 51 mins
Original Note:
Today's Communication/Plan
-
Liver Biopsy today--pathology pending
Continue sliding scale insulin
Continue to monitor for blood sugar and blood pressure
Blood pressure medication udpate
Considering Chest CT
Confirm treatment plan with family going forward
Assessment / Plan
Assessment / Plan
79 y.o Male with past medical history of chronic lymphocytic leukemia, prostate cancer, GERD, hypercholesterolemia, Yps-Hzequzt-Blreerbde Diabetes Mellitus presents to the emergency department with ongoing concern for weakness, jaundice,
intermittent confusion poor appetite, and weight loss. Increased thirst and increased urine output over the last 2 weeks also reported. At ER bp was 170/100. elevated total bilirubin to 9.9, AST 595 ALT in 457� and Alkaline Phosphatase of over 1075
with a lipase of 754. Glucose 486.
#Hyperglycemia (w/o DKA)
#NIDDM
-Polydipsia, polyuria
--Urine glucose 4+
-Glucose 486---->239 today
-Sodium 135 ---> 138 for hyperglycemia.�
-POC glucose 225 today
-Sliding insulin scale
-HS lantus increased to 18, Novolog increased to 8 per Diabetes Management
-Diabetes Management by MACHINE I CUTTER
-Diabetes Education Consult
-Continue to monitor glucose
-Plan for metformin on discharge
#Elevated LFTs, Metastatic Disease, primary unknown, likely metastatic
Thrombcytopenia 126L
AST 595 ALT in 457� and�ALP 1075-----> 755, 497,1084---> 680, 470, 1120
Total Bilirubin 9.9---> 13.7--> 16.5
Direct bilirubin 8.2
Lipase of 754
CT scan:
Numerous low-density lesions throughout the liver, compatible with hepatic metastatic disease.
Enlarged lymph nodes in the periportal, portacaval, and gastrohepatic ligament region, likely neoplastic lymphadenopathy.
Subtle small lytic lesions within the visualized thoracic and lumbar spine, suspicious for bony metastatic disease.
Small densities within the perinephric fat bilaterally, new since prior examination, and suspicious for small neoplastic retroperitoneal implants.
Chest X ray
Left hilar shadow appears to be enlarged. Band of increased density in the left perihilar region, suggesting atelectasis.
Subtle increased density in the posterior mid to lower lungs on the lateral view, but poorly defined.
Findings raise concern for a left central neoplasm
MRI abd w and w/o contrast yesterday: Innumerable hepatic metastases. Enlarged periportal and portacaval lymph nodes suggesting shirley metastases. Small nodular foci in the bilateral perinephric fat concerning for metastatic implants.
-CEA- 3.50
-CA 19-9 403H
- for Liver Biopsy today-- pathology pending
-to consider chest CT as recommended
- acetaminophen on hold ondasetrol hcl antiemetic
-Oncology following
#Hypertension
160-170's / 90-100's
-Lisinopril 10mg started
-147/94 today
DVT prophylaxis- Lovenox
Full Code
Anticipated Discharge: > 48 hours
Subjective/Interval History
-
Date of Service: September 10, 2024
The patient admits to constipation. He denies any abdominal pain, fever, lightheadedness, and weakness.
Objective Data
-
Labs:
Laboratory Results
09/10/24
08:28
WBC 10.1
Hgb 14.4
Hct 41.5
Plt Count 126 L
Sodium Pending
Potassium Pending
Chloride Pending
Carbon Dioxide Pending
BUN Pending
Creatinine Pending
Glucose Pending
Calcium Pending
Total Bilirubin Pending
AST Pending
ALT Pending
Alkaline Phosphatase Pending
Vital Signs:
Vital Signs
Temp Pulse Resp BP Pulse Ox
98.5 F 111 18 147/94 98
09/10/24 07:35 09/10/24 07:35 09/10/24 07:35 09/10/24 07:35 09/10/24 07:35
I&O
09/09/24 09/10/24 09/11/24
06:59 06:59 06:59
Intake Total 1200 / 1200 990 / 990
Output Total 1740 / 1740 1350 / 1350
Balance -540 / -540 -360 / -360
Review of Systems
-
History Source: Patient
Constitutional: Reports Other (Denies weakness, fever, fatigue)
EENT: Reports No Symptoms Reported
Respiratory: Reports Other (Denies cough, trouble breathing)
Cardiac: Reports Other (Denies chest pain, palpitations, orthopnea)
Abdomen/GI: Reports Constipated and Other (Denies abdominal pain, vomiting, acholic stool)
Genitourinary: Reports Other (Denies difficulty voiding)
Musculoskeletal: Reports Other (Denies muscle weakness, edema)
Neuro: Reports Other (Denies weakness, headache, numbness)
Endocrine: Reports Polyuria
Hematologic / Lymphatic: Reports Other (Denies bleeding)
Physical Exam
-
General: No Apparent Distress, Comfortable and Conversant
HEENT: Normocephalic, Atraumatic and Other (Icteric sclera)
Respiratory: Clear to Auscultation and Non Labored Respirations (at rest, but period of tachypnea upon positional changes)
Cardiac: Regular Rhythm and S1/S2
GI: Soft, Nontender and Distended
Rectal: Deferred by Provider
Genito-urinary: No Costovertebral Tender
Musculoskeletal: No Clubbing, No Cyanosis and No Edema
Skin: Warm and Jaundice
Neuro: AO x 3 and No Motor Deficits
Psych: Calm
[2024-09-10 09:59] LABS: ALT (SGPT) 470 U/L (0-50); AST (SGOT) 680 U/L (17-59); Albumin 3.3 g/dl (3.5-5.0); Blood Urea Nitrogen 24 mg/dl (9-20); Calcium 9.6 mg/dl (8.4-10.2); Carbon Dioxide 22 mmol/L (22-30); Chloride 103 mmol/L (98-107); Estimated Creatinine Clearance 57 ml/min; Glucose 239 mg/dl (70-99); Potassium 4.2 mmol/L (3.5-5.1); Sodium 135 mmol/L (135-145); Total Protein 5.7 g/dl (6.3-8.2); eGFR > 60.00
[2024-09-10 10:33] LABS: Alkaline Phosphatase 1120 U/L (38-126)
--- NOTE | 2024-09-10 10:55 | PTCARENOTE ---
Pt is off the floor to IR for liver biopsy at this time.
--- NOTE | 2024-09-10 11:28 | PN.DE.MGMTRT ---
Insulin Management
- -
09/10/2024 Diabetes Management Consult
Patient admitted 09/07 with weakness, poor appetite, abdominal distention, jaundice, confusion. PMH Barnes's Esophagus, diabetes, RA, HCL, chronic CLL, prostate CA with mets to liver. Prior to admission was taking 4 mg glimepiride in AM. A1C on
admission 9.1%, cr 1, eGFR > 60.
Patient is off of the unit for liver biopsy. Information obtained from chart. He was diagnosed with pre diabetes 05/2017 and diabetes 03/2018.
Glucose on admission 486; range 240 to 256 receiving 15 units lantus @ HS and 5 units novolog ac and +3 corrective.
Will increase HS lantus to 18 units and ac novolog to 8 units.
Diabetes nurse educator to provide meter and instruct on testing glucose and administering insulin. Due to liver involvement will not restart oral medication.
Discussed with nurse
Will follow
Diabetes History
- -
Type of Diabetes: 2 requiring insulin
Pre-Admission Diabetes Regimen
09/10/24
08:28
Creatinine 1.0
Lab Results
Hemoglobin A1c 9.1 % (4.0-5.6) H 09/08/24 06:47
Insulin Pump Settings
IP Diabetes Regimen
09/09/24 09/09/24 09/09/24
12:01 16:31 22:45
Glucose
POC Glucose 240 H 243 H 256 H
09/10/24 09/10/24 09/10/24
00:38 06:11 08:28
Glucose 239 H
POC Glucose 252 H 225 H
Meal type: Dinner
Meal type: Lunch
Amount consumed: 30%
Amount consumed: Patient refused
Patient Education
[2024-09-10 12:43] LABS: Glucose - Point of Care 234 mg/dl (70-99)
--- NOTE | 2024-09-10 12:45 | PTCARENOTE ---
Pt returned from IR s/p liver biopsy. Pt slide transferred over to the bed. VSS. Pt drowsy but conversive. Bandaid R abd CDI. Pt denies pain. Bedrest to be maintained until 1430.
[2024-09-10] MEDS: NOVOLOG FLEXPEN 8 UNITS SC ×2 (13:34→17:46)
[2024-09-10 16:07] LABS: GGTP 1316 U/L (15-73)
[2024-09-10 17:00] LABS: Glucose - Point of Care 253 mg/dl (70-99)
[2024-09-10] MEDS: NOVOLOG FLEXPEN-MODERATE RESISTANCE 5 UNITS SC (17:45)
[2024-09-10] MEDS: LIPITOR 10 MG PO (17:46)
[2024-09-10] MEDS: LOVENOX 40 MG SC (17:47)
[2024-09-10] MEDS: SENOKOT-S 1 TABLET PO (17:47)
[2024-09-10 21:20] LABS: Glucose - Point of Care 270 mg/dl (70-99)
[2024-09-10] MEDS: ELAVIL 50 MG PO (22:09)
[2024-09-10] MEDS: PEPCID 20 MG PO (22:09)
[2024-09-10] MEDS: LANTUS 0.18 UNITS SC (22:10)
--- NOTE | 2024-09-11 06:12 | PTCARENOTE ---
Pt with intermittent confusion overnight, Pt very weak on feet needing assistance with walker and RN to stand to urinate, Pt unable to use urinal safely on own. Multiple bed changes provided. Bed alarm in place. Will continue to monitor.
[2024-09-11 07:16] LABS: Hematocrit 37.9 % (39.0-52.0); Hemoglobin 13.2 g/dL (13.0-18.0); Mean Corp Hgb Conc. 34.8 g/dL (33.0-37.0); Mean Corpuscular Volume 86.3 fL (80.0-94.0); Platelet Count 131 10^3/uL (130-400); Red Cell Dist. Width 13.5 % (11.5-14.5)
[2024-09-11 07:18] LABS: INR 1.22; PT 15.7 Sec (11.4-14.6)
[2024-09-11 07:24] LABS: Glucose - Point of Care 323 mg/dl (70-99)
[2024-09-11 07:25] VITALS: BP 131/86
[2024-09-11] MEDS: CLARITIN 10 MG PO (08:14)
[2024-09-11] MEDS: PROTONIX 40 MG PO (08:14)
[2024-09-11] MEDS: ZESTRIL 10 MG PO (08:14)
[2024-09-11] MEDS: NOVOLOG FLEXPEN-MODERATE RESISTANCE 7 UNITS SC (08:15)
[2024-09-11] MEDS: NOVOLOG FLEXPEN 8 UNITS SC (08:16)
[2024-09-11] MEDS: FLUSH (NSS) 1 FLUSH IV (08:17)
--- NOTE | 2024-09-11 08:21 | PN.DE.MGMTRT ---
Insulin Management
- -
09/11/2024 Diabetes Management Consult Follow up
Patient admitted 09/07 with weakness, poor appetite, abdominal distention, jaundice, confusion. PMH Barnes's Esophagus, diabetes, RA, HCL, chronic CLL, prostate CA with mets to liver. Prior to admission was taking 4 mg glimepiride in AM. A1C on
admission 9.1%, cr 1, eGFR > 60.
Patient is awake and alert but forgetful. He is not sure when he was diagnosed with diabetes but medical records indicate he was diagnosed with pre diabetes 05/2017 and diabetes 03/2018. Son and grandson at bedside and very supportive.
Glucose yesterday 225 to 270 received 8 novolog AC and 18 units lantus.
Fasting glucose today 323. Will increase HS lantus to 22 units and ac novolog to 15 units. AM dose of novolog 8 units + 3 corrective already given will start increased dose at lunch.
Discussed with son need for insulin, he states patient has declined significantly since Monday both physically and cognitively. He is concerned his dad will not be able to remember steps for testing and taking insulin. Assured him we would
continue to work with his dad. Son states one week ago he would have been able to do these tasks as he was completely independent.
Diabetes nurse educator to provide meter and instruct on testing glucose and administering insulin. Due to liver involvement will not restart oral medication.
Discussed with nurse
Will follow
Diabetes History
- -
Type of Diabetes: 2 requiring insulin
Pre-Admission Diabetes Regimen
09/10/24
08:28
Creatinine 1.0
Lab Results
Hemoglobin A1c 9.1 % (4.0-5.6) H 09/08/24 06:47
Insulin Pump Settings
IP Diabetes Regimen
09/10/24 09/10/24 09/10/24
08:28 12:31 16:46
Glucose 239 H
POC Glucose 234 H 253 H
09/10/24 09/11/24
21:18 07:22
Glucose
POC Glucose 270 H 323 H
Meal type: Breakfast
Meal type: Lunch
Patient Education
[2024-09-11 08:24] LABS: ALT (SGPT) 432 U/L (0-50); AST (SGOT) 580 U/L (17-59); Albumin 3.1 g/dl (3.5-5.0); Alkaline Phosphatase 1160 U/L (38-126); Blood Urea Nitrogen 39 mg/dl (9-20); Calcium 9.8 mg/dl (8.4-10.2); Carbon Dioxide 22 mmol/L (22-30); Chloride 102 mmol/L (98-107); Estimated Creatinine Clearance 48 ml/min; Glucose 316 mg/dl (70-99); Potassium 4.4 mmol/L (3.5-5.1); Sodium 134 mmol/L (135-145); Total Protein 5.6 g/dl (6.3-8.2); eGFR > 60.00
--- NOTE | 2024-09-11 11:20 | W.PN.ONC2 ---
Today's Communication / Plan
-
new diagnosis of neuroendocrine carcinoma via liver bx and seemingly aggressive since CT Dec 2023 did not suggest any evidence at that time reviewed with pt and son at bedside. Furthermore, limited options based on LFTs discussed with comfort
focused care being most appropriate. continues GOC and discharge planning
Impression
Impression
liver bx prelim -neuroendocrine carcinoma
liver lesions, periportal, portacaval, and gastrohepatic ligament lymphadenopathy, splenomegaly, small lytic lesions in thoracic and lumbar spinem, small densities within the perinephric fat bilaterally
abnormal LFTs-Tbili w transaminitis -jaundice
CLL
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 Orosco
h/p prostate cancer - s/p prostatectomy
uncontrolled DM
Plan
Plan
1. neuroendocrine carcinoma, stains pending
-MRI with innumerable hepatic mets, enlarged periportal and portacaval LNs, splenomegaly, possible spine/rib mets
-Normal PSA and CEA, Ca 19.9 elevated 403
-appreciate GI input - no role for EGD/EUS - ERCP
2. CLL / NHL - tx [id number] w/ Dr. Orosco
-hematologic malignancy is on differential as to etiology of radiographic findings - await pathology
Subjective/Objective
Subjective
no new complaints
spending most of day sleeping but ambulating to the bathroom and good appetite
denies pain
Vital Signs:
Vital Signs
Temp Pulse Resp BP Pulse Ox
97.6 F 110 18 131/86 97
09/11/24 07:25 09/11/24 08:14 09/11/24 07:25 09/11/24 08:14 09/11/24 08:13
Lab Results:
Laboratory Data
WBC 9.9 10^3/uL (4.8-10.8) 09/11/24 06:29
Hgb 13.2 g/dL (13.0-18.0) 09/11/24 06:29
Plt Count 131 10^3/uL (130-400) 09/11/24 06:29
PT 15.7 Sec (11.4-14.6) H 09/11/24 06:29
INR 1.22 09/11/24 06:29
eGFR > 60.00 09/11/24 06:29
Physical Exam
HEENT: Jaundice
Pulmonary: Other (unlabored)
GI: Soft
Extremities: Pulses Present
[2024-09-11 11:59] VITALS: BP 135/80; PULSE 100; O2SAT 96
--- NOTE | 2024-09-11 12:11 | PTCARENOTE ---
09/11/2024 DIABETES EDUCATION CONSULT
Met with patient who was drowsy with eyes closed with intermittent periods of wakefulness. Spoke with patient's son and grandson to discuss complications of diabetes, HbA1c goals, blood sugar parameters, s/s hypoglycemia, hypoglycemia protocol.
Discussed aspects of CGM with alerts for high and low, as low can become very serious. Son does not think patient will be able to monitor blood sugar with fingerstick will, is interested in CGM. Provided brochure and demonstration on Gvoke pen.
I educated and demonstrated on insulin injection technique, timing, and storage. Discussed long and short acting insulin; onset/peak/duration. Discussed normal target glucose ranges and a monitoring schedule 15 minutes before each meal when
prescribed Novolog, and preprandial AM and/or bedtime as recommended by MD. Patient's son was able to provide repeat demonstration of insulin administration.
I provided demonstration on self monitoring of glucose and Contour Next Gen glucometer kit. Patient agreed to myself checking his glucose numbers, but was not able to perform self demonstration. Son provided repeat demonstration of inserting
needle into lancing device and setting up glucometer with test strip but did not actually check a blood sugar; he did not want to upset his father with another finger stick.
Written information provided on glucometer and CGM instructions, glucose tracker, medic alert bracelet, insulin administration instructions. Spoke to RN, agreed patient unable to perform self administered insulin. Will visit son tomorrow to
answer any questions and provide another demonstration if necessary.
--- NOTE | 2024-09-11 12:11 | PTOTSP ---
Please order occupational therapy for ADL dysfunction.
[2024-09-11 12:45] LABS: Glucose - Point of Care 247 mg/dl (70-99)
[2024-09-11 13:02] LABS: Ammonia 29 umol/L (9-30)
[2024-09-11] MEDS: NOVOLOG FLEXPEN-MODERATE RESISTANCE 3 UNITS SC (13:03)
[2024-09-11] MEDS: NOVOLOG FLEXPEN 15 UNITS SC ×2 (13:04→17:27)
[2024-09-11 15:35] VITALS: BP 146/82
--- NOTE | 2024-09-11 16:01 | PTCARENOTE ---
Pt sleeping for long interval; easily arousable; oriented x3 when awake, but very forgetful; restless at times. DOBSON well, OOB to chair with assist x 1-2/walker; very unsteady w/OOB activity. Cooperative. VSS. On room air- pulse ox 97%, no SOB
noted. Abd large, sl firm; becca PO; appetite good. Incont mod amts james urine; condom catheter currently off. Skin jaundiced; afebrile; Rt abd dsg D/I. Resting quietly at present. Will continue to monitor.
--- NOTE | 2024-09-11 16:12 | CM ---
Spoke with son yesterday and today.
PT OT evals =SNF.
Reviewed PT OT results with son .
PAc Data for area SNF given to son. CM gave son Casting Machine Operator information for setting up assisted living.
Son to provide SNF picks.
MD ordered hospice consult. Son said he wants information only. He would like him to try SNF first.
Referral placed for Hospice. Rodrick White texted her knowledge of referral.
PLAN Locate Snf
[2024-09-11 16:30] LABS: Glucose - Point of Care 265 mg/dl (70-99)
[2024-09-11] MEDS: LOVENOX 40 MG SC (17:26)
[2024-09-11] MEDS: NOVOLOG FLEXPEN-MODERATE RESISTANCE 5 UNITS SC (17:27)
--- NOTE | 2024-09-11 17:42 | W.PN.HOSP.TC ---
Addendum entered and electronically signed by Timoteo Lala MD 09/11/24 22:26:
Attending Addendum-
I saw and evaluated the patient. I reviewed the resident�s note and agree with findings and plan as documented in the resident�s note. Sub: seen with son, feels extremely fatigued. no fevers chills abd pain N/V. Full 12 point ROS reviewed and
negative except as documented Exam: Vitals reviewed in chart GEN-NAD jaundiced, HEENT- b/l scleral icterus heart RRR lungs clear abd distended pos BS TTP RUQ +HSM incision RUQ CDI, LE trace b/l LE edema
Plan:
# Severe Hyperglycemia w/o DKA
-uncontrolled
-increased Lantus/Novolog 20/06->23/09 ->
-SSI
-HBA1c- 9.1
-DM BATTERY CONTAINER INSPECTOR input appreciated
-DC glimepiride
-DC all labs and accuchecks- pursue pall care with eventual transition to hospice
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
- oncology input appreciated
- psa, cea-neg
- ca 19-9 - likely elevated due to impaired bile blow from hep mets
- MRI abd w/ w/o contrast -Innumerable hepatic metastases.Enlarged periportal and portacaval lymph nodes suggesting shirley metastases. Small nodular foci in the bilateral perinephric fat concerning for metastatic implants.
-Cholelithiasis. Gallbladder wall thickening, likely reactive.
-Splenomegaly
-Signal alteration in the spine and bilateral ribs, most suspicious for osseous metastatic disease.
- liver bx 09/10 by IR- path -Metastatic small cell neuroendocrine carcinoma
- pain control and antiemetics
- increased hyperbilirubinemia - repeat labs in am
- extremely poor prognosis weeks to months
- start comfort care when family agreeable, DC all labs
- maintain dignitiy
- c/s pall care can see 09/13
- d/w CM re hospice c/s
# Hyponatremia
- resolved
# H/O CLL marginal t zone
# HLD- hold atorvastatin
# Depression- cont elavil
# GERD- cont famotidine and pantoprazole
# HTN- cont lisinopril
DVT PX - lovenox sq
Code status - Full Code ->DNR
ACP
Patient consented to discuss, was with son, time spent explanation of advance directives, changes in health status, patient�s health care wishes if the patient becomes unable to make health decisions, goals of care, code status, and prognosis poor
prognosis < 6months survival, d/w son agreeable to DC labs accuchecks and to d/w family re comfort care, agreed to change of code status- 18 minutes
Time spent coordinating care, review of plan of care with resident, personally reviewed previous records in EMR, med rec, labs, radiology, d/w nursing, family total time documented is exclusive of any additional time listed that was spent in advance
care planning discussion -�51 minutes
Original Note:
Today's Communication/Plan
-
Comfort care discussions ongoing
Full code changed to Do not resuscitate status per family's request
Hospice consult and palliative consult ongoing
No labs, No accu-checks
Formal comfort care measure will not be ordered yet as family is still deciding.
Continue to monitor patient
Assessment / Plan
Assessment / Plan
79 y.o Male with past medical history of chronic lymphocytic leukemia, prostate cancer, GERD, hypercholesterolemia, Xgh-Fuaprjm-Miyuxywkb Diabetes Mellitus presents to the emergency department with ongoing concern for weakness, jaundice,
intermittent confusion poor appetite, and weight loss. Increased thirst and increased urine output over the last 2 weeks also reported. At ER bp was 170/100. elevated total bilirubin to 9.9, AST 595 ALT in 457� and Alkaline Phosphatase of over 1075
with a lipase of 754. Glucose 486.
#Elevated LFTs, Metastatic Disease, primary unknown, likely metastatic
Thrombcytopenia 126L
AST 595 ALT in 457� and�ALP 1075-----> 755, 497,1084---> 680, 470, 1120---> 580, 432, 1160
Total Bilirubin 9.9---> 13.7--> 16.5--> 18.0
Lipase of 754
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
CT scan:
Numerous low-density lesions throughout the liver, compatible with hepatic metastatic disease.
Enlarged lymph nodes in the periportal, portacaval, and gastrohepatic ligament region, likely neoplastic lymphadenopathy.
Subtle small lytic lesions within the visualized thoracic and lumbar spine, suspicious for bony metastatic disease.
Small densities within the perinephric fat bilaterally, new since prior examination, and suspicious for small neoplastic retroperitoneal implants.
Chest X ray
Left hilar shadow appears to be enlarged. Band of increased density in the left perihilar region, suggesting atelectasis.
Subtle increased density in the posterior mid to lower lungs on the lateral view, but poorly defined.
Findings raise concern for a left central neoplasm
MRI abd w and w/o contrast yesterday: Innumerable hepatic metastases. Enlarged periportal and portacaval lymph nodes suggesting shirley metastases. Small nodular foci in the bilateral perinephric fat concerning for metastatic implants.
-CEA- 3.50
-CA 19-9 403H
-GGTP: 1316H
EGD/EUS - ERCP not appropriate for patient's case--- GI input appreciated
The patient is not a candidate for palliative chemotherapy due to liver failure, and there are no biliary target for stents, thus comfort care is most appropriate.-- oncology input appreciated.
The patient's family was informed of the poor prognosis of the condition. Discussion on how to proceed with patient's care was initiated and the family is leaning towards comfort care, though they are still processing. For now, they have decided to
maximize patient's comfort, thus laboratories and accu-checks will be discontinued, but diabetes care management will be retained. Formal comfort care status will not be ordered until family makes their final decision. Currently, the patient denies
any pain thus deferring more intense pain management measures.
The family has also decided to change full code to do not resuscitate status with appropriate comfort care measures in place. Case management consult for hospice discussions placed. Palliative care consult also done.
#Hyperglycemia (w/o DKA)
#NIDDM
-Polydipsia, polyuria
--Urine glucose 4+
-Diabetes Management by BATTERY CONTAINER INSPECTOR
-Diabetes Education Consult
#Hypertension
-131/86
-Lisinopril 10mg
DVT prophylaxis- Lovenox
Full Code
Anticipated Discharge: 24 - 48 hours
Subjective/Interval History
-
Date of Service: September 11, 2024
The patient still has polydipsia and polyuria. Overnight, he had a condom catheter put on for incontinence. When asked if he had any changes in his cognition, he admits to feeling a little 'foggy'.Does not report any abdominal pain or weakness
Objective Data
-
Labs:
Laboratory Results
09/11/24
06:29
WBC 9.9
Hgb 13.2
Hct 37.9 L
Plt Count 131
PT 15.7 H
INR 1.22
Sodium 134 L
Potassium 4.4
Chloride 102
Carbon Dioxide 22
BUN 39 H
Creatinine 1.2
Glucose 316 H
Calcium 9.8
Total Bilirubin 18.0 H
AST 580 H*
ALT 432 H
Alkaline Phosphatase 1160 H
Vital Signs:
Vital Signs
Temp Pulse Resp BP Pulse Ox
99.3 F 111 18 146/82 97
09/11/24 15:35 09/11/24 15:35 09/11/24 15:35 09/11/24 15:35 09/11/24 16:00
I&O
09/10/24 09/11/2409/12/25
06:59 06:59 06:59
Intake Total 990 / 990 410 / 410 960 / 960
Output Total 1350 / 1350 250 / 250 700 / 700
Balance -360 / -360 160 / 160 260 / 260
Review of Systems
-
History Source: Patient
Constitutional: Reports Other (Denies weakness, fever, fatigue)
EENT: Reports No Symptoms Reported
Respiratory: Reports Other (Denies cough)
Cardiac: Reports Other (Denies chest pain, palpitations, orthopnea)
Abdomen/GI: Reports Other (Denies abdominal pain, vomiting, acholic stool)
Genitourinary: Reports Other (Denies difficulty voiding)
Musculoskeletal: Reports Other (Denies muscle weakness, edema)
Neuro: Reports Other (Denies weakness, headache, numbness)
Endocrine: Reports Polyuria
Hematologic / Lymphatic: Reports Other (Denies bleeding)
Physical Exam
-
General: No Apparent Distress, Comfortable and Conversant
HEENT: Normocephalic, Atraumatic and Other (Icteric sclera)
Respiratory: Clear to Auscultation and Non Labored Respirations (at rest, but period of tachypnea upon positional changes)
Cardiac: Regular Rhythm and S1/S2
GI: Soft, Nontender and Distended
Rectal: Deferred by Provider
Genito-urinary: Other (Tea-colored urine)
Musculoskeletal: No Clubbing, No Cyanosis and No Edema
Skin: Warm and Jaundice
Neuro: AO x 3, No Motor Deficits and Other ((-) asterixis)
Psych: Calm
[2024-09-11] MEDS: PEPCID 20 MG PO (21:22)
[2024-09-11] MEDS: ELAVIL 50 MG PO (21:22)
[2024-09-11 21:34] LABS: Glucose - Point of Care 221 mg/dl (70-99)
[2024-09-11] MEDS: LANTUS 0.22 UNITS SC (22:05)
[2024-09-11 23:08] VITALS: BP 128/75
--- NOTE | 2024-09-12 07:44 | PN.DE.MGMTRT ---
Insulin Management
- -
09/12/2024 Diabetes Management Consult Follow up
Patient admitted 09/07 with weakness, poor appetite, abdominal distention, jaundice, confusion. PMH Barnes's Esophagus, diabetes, RA, HCL, chronic CLL, prostate CA with mets to liver. Prior to admission was taking 4 mg glimepiride in AM. A1C on
admission 9.1%, cr 1, eGFR > 60.
Patient is not sure when he was diagnosed with diabetes but medical records indicate he was diagnosed with pre diabetes 05/2017 and diabetes 03/2018. Son, and 3 grandchildren at bedside and very supportive.
Glucose yesterday 221 to 265 received 15 novolog AC and 22 units lantus.
Patient is awake alert forgetful. Family discussion re hospice vs SNF. Fasting glucose today 230 . Will increase HS lantus to 26 units and ac novolog to 20 units.
Discussed with son need for insulin, he states patient has declined significantly since Monday both physically and cognitively. We further discussed what happens with insulin with hospice vs SNF. All questions answered.
Diabetes nurse educator did provide meter and instruct on testing glucose and administering insulin. Patient is unable to follow steps for testing or self injection. Due to liver involvement will not restart oral medication. Will not return to
reinforce.
Discussed with nurse
Will follow
Diabetes History
- -
Type of Diabetes: 2 requiring insulin
Pre-Admission Diabetes Regimen
09/11/24
06:29
Creatinine 1.2
Lab Results
Hemoglobin A1c 9.1 % (4.0-5.6) H 09/08/24 06:47
Insulin Pump Settings
IP Diabetes Regimen
09/11/24 09/11/24 09/11/24
06:29 12:34 16:28
Glucose 316 H
POC Glucose 247 H 265 H
09/11/24
21:33
Glucose
POC Glucose 221 H
Meal type: Dinner
Meal type: Lunch
Meal type: Breakfast
Amount consumed: 100%
Amount consumed: 80%
Amount consumed: 75%
Patient Education
[2024-09-12 07:45] VITALS: BP 160/89
[2024-09-12 08:01] LABS: Glucose - Point of Care 230 mg/dl (70-99)
--- NOTE | 2024-09-12 08:25 | W.PN.ONC2 ---
Today's Communication / Plan
-
continue GOC
Impression
Impression
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
abnormal LFTs-Tbili w transaminitis -jaundice
CLL / NHL - tx [id number] w/ Dr. Orosco
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 Orosco
h/p prostate cancer - s/p prostatectomy
uncontrolled DM
Plan
Plan
He's not a candidate for (palliative) chemotherapy due to liver failure, and no biliary targets to stent
Comfort measures are most appropriate.
Subjective/Objective
Subjective
no new complaints
feels like his is sleeping a lot
Vital Signs:
Vital Signs
Temp Pulse Resp BP Pulse Ox
97.6 F 110 15 160/89 96
09/12/24 07:45 09/12/24 07:45 09/12/24 07:45 09/12/24 07:45 09/12/24 07:45
Lab Results:
Laboratory Data
WBC 9.9 10^3/uL (4.8-10.8) 09/11/24 06:29
Hgb 13.2 g/dL (13.0-18.0) 09/11/24 06:29
Plt Count 131 10^3/uL (130-400) 09/11/24 06:29
PT 15.7 Sec (11.4-14.6) H 09/11/24 06:29
INR 1.22 09/11/24 06:29
eGFR > 60.00 09/11/24 06:29
Physical Exam
HEENT: Jaundice
Pulmonary: Other (unlabored)
GI: Soft
Extremities: Pulses Present
[2024-09-12] MEDS: CLARITIN 10 MG PO (08:29)
[2024-09-12] MEDS: ZESTRIL 10 MG PO (08:29)
[2024-09-12] MEDS: PROTONIX 40 MG PO (08:29)
[2024-09-12] MEDS: NOVOLOG FLEXPEN 20 UNITS SC (08:30)
[2024-09-12] MEDS: NOVOLOG FLEXPEN SC (08:46)
--- NOTE | 2024-09-12 11:22 | HOSPNOTE ---
Spoke at length with family about hospice and the philosophy. The plan is for patient to be moved to orth remain on comfort and re assess for inpatient hospice in the am. Attending and CM aware of plan. I spoke with the floor RN and updated with
plan. We will continue to follow and assess.
--- NOTE | 2024-09-12 13:03 | PN.CDI ---
CDI
- -
CDI:
Physician Documentation Request
Admit Date: 09/07/24 20:49
Dear Doctor Spike/Resident,
Please review the following and provide your response in the progress notes.
Clinical Indicators:
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
Progress note 09/11,' The patient is not a candidate for palliative chemotherapy due to liver failure...'
09/07/24 09/08/24 09/09/24
16:47 06:47 09:25
AST 595 H* 638 H* 755 H*
ALT 457 H 497 H
09/10/24 09/11/24
08:28 06:29
AST 680 H* 580 H*
ALT 470 H 432 H
Please clarify which of the following accurately represents the acuity of the (Liver Failure )
Acute
Chronic
Acute on Chronic
Other (please specify)
Use of terms such as suspected, likely, concern for, or probable (associated with a specific diagnosis that is being evaluated, monitored, or treated as if it exists) are acceptable and can be coded in the inpatient setting, when documented at the
time of discharge.
Thank you,
Elisa Khalil RN
CDI Specialist
[facility]
Please use your independent medical judgment in providing your response.
--- NOTE | 2024-09-12 13:04 | CM ---
As per [facility] .
Pt will be transferred to on comfort care and reevaluated for GIP tomorrow..
Son and family are all in agreement.
PLAN Transferred on comfort care
--- NOTE | 2024-09-12 13:15 | PTOTSP ---
Reviewed chart and noted pt now on comfort measures and transitioning to hospice care. PT will sign off.
--- NOTE | 2024-09-12 13:44 | W.PN.HOSP.TC ---
Addendum entered and electronically signed by Timoteo Lala MD 09/12/24 22:16:
Attending Addendum-
I saw and evaluated the patient. I reviewed the resident�s note and agree with findings and plan as documented in the resident�s note. Sub: seen with son and his , no fevers chills abd pain N/V. patient is mildly confused. Full 12 point ROS
reviewed and negative except as documented Exam: Vitals reviewed in chart GEN-NAD jaundiced, HEENT- b/l scleral icterus heart RRR lungs clear abd distended pos BS TTP RUQ +HSM incision RUQ CDI, LE trace b/l LE edema AAO x 1 no asterixis
Plan:
# Severe Hyperglycemia w/o DKA
-DC all insulin and labs
-transition to comfort care per family wishes
# Acute Liver Injury
-INR < 1.5, transaminitis, ammonia wnl, T bili increasing
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
- oncology input appreciated
- MRI abd w/ w/o contrast -Innumerable hepatic metastases.Enlarged periportal and portacaval lymph nodes suggesting shirley metastases. Small nodular foci in the bilateral perinephric fat concerning for metastatic implants.
-Cholelithiasis. Gallbladder wall thickening, likely reactive.
-Splenomegaly
-Signal alteration in the spine and bilateral ribs, most suspicious for osseous metastatic disease.
- liver bx 09/10 by IR- path -Metastatic small cell neuroendocrine carcinoma
- pain control and antiemetics
- extremely poor prognosis
- start comfort care
- maintain dignity and comfort
- d/w hospice 09/12- likely to transition to IP hospice in am
# Hyponatremia
# H/O CLL marginal t zone
# HLD
# Depression
# GERD
# HTN
DVT PX - lovenox sq
Code status - Full Code ->DNR
Dispo transition to IP hospice in am
Time spent coordinating care, review of plan of care with resident, personally reviewed records in EMR, med rec, consults, notes, labs, radiology, d/w nursing POA and family � 51 mins
Original Note:
Today's Communication/Plan
-
On Comfort care
Plan to advance to inpatient hospice tomorrow
Will continue to ensure dignity and hygiene of patient
Assessment / Plan
Assessment / Plan
79 y.o Male with past medical history of chronic lymphocytic leukemia, prostate cancer, GERD, hypercholesterolemia, Ikm-Enxyqpd-Fwmkjaxmj Diabetes Mellitus presents to the emergency department with ongoing concern for weakness, jaundice,
intermittent confusion poor appetite, and weight loss. Increased thirst and increased urine output over the last 2 weeks also reported. At ER bp was 170/100. elevated total bilirubin to 9.9, AST 595 ALT in 457� and Alkaline Phosphatase of over 1075
with a lipase of 754. Glucose 486.
Comfort care started per family's request, consent obtained. Patient care will be geared towards maximizing patient's comfort. Will ensure the dignity and hygiene of patient at this time.
Code Status: DNR
Anticipated Discharge: Within 24 hours
Subjective/Interval History
-
Date of Service: September 12, 2024
The patient reports shortness of breath without associated chest pain. Periods of confusion and slurring of words also noted during conversation with the patient today.
Objective Data
-
Vital Signs:
Vital Signs
Temp Pulse Resp BP Pulse Ox
97.6 F 110 15 160/89 96
09/12/24 07:45 09/12/24 07:45 09/12/24 07:45 09/12/24 07:45 09/12/24 07:45
I&O
09/11/24 09/12/24 09/13/24
06:59 06:59 06:59
Intake Total 410 / 410 1200 / 1200
Output Total 250 / 250 1150 / 1150
Balance 160 / 160 50 / 50
Review of Systems
-
History Source: Patient
Constitutional: Reports Fatigue and Other (Denies fever)
EENT: Reports No Symptoms Reported
Respiratory: Reports Other ((+) shortness of breath)
Cardiac: Reports Other (Denies chest pain, palpitations, orthopnea)
Abdomen/GI: Reports Other (Denies abdominal pain)
Genitourinary: Reports Incontinence
Skin: Reports Other (Denies itching)
Neuro: Reports Other (Denies headache, numbness)
Endocrine: Reports Polyuria
Hematologic / Lymphatic: Reports Other (Denies bleeding)
Physical Exam
-
General: Conversant, Slurred Speech and Appears Chronically Ill
HEENT: Normocephalic, Atraumatic and Other (Icteric sclera)
Respiratory: Clear to Auscultation and Accessory Resp Muscle Use
Cardiac: Regular Rhythm and S1/S2
GI: Soft, Nontender and Distended
Rectal: Deferred by Provider
Genito-urinary: Other (Dark colored urin)
Musculoskeletal: No Clubbing, No Cyanosis and No Edema
Skin: Warm and Jaundice
Neuro: AO x 3 and Other ((-) asterixis)
Psych: Calm
[2024-09-12 16:17] VITALS: BP 136/85
[2024-09-12] MEDS: ATIVAN 0.5 MG PO (17:46)
[2024-09-12] MEDS: MORPHINE SULFATE 1 MG IV (17:52)
[2024-09-12 19:13] VITALS: BP 142/80
[2024-09-12] MEDS: VALIUM INJECTION 2 MG IV (19:33)
[2024-09-13] MEDS: MORPHINE SULFATE 1 MG IV ×2 (00:09→08:21)
[2024-09-13] MEDS: DESENEX/MITRAZOL/ZEASORB 1 APPLIC TOPICAL ×2 (00:10→08:20)
[2024-09-13] MEDS: VALIUM INJECTION 2 MG IV (03:30)
[2024-09-13 07:00] VITALS: BP 111/66
--- NOTE | 2024-09-13 11:52 | CM ---
CM following re: discharge planning.
Discharge order note.
Pt is accepted for admission to inpatient hospice with hospice GIP.
CM is available for emotional support.
--- NOTE | 2024-09-13 12:45 | HOSPNOTE ---
Patient will be admitted inpatient hospice for agitation and pain. Admissions,CM and Attending aware.
--- NOTE | 2024-09-13 17:03 | W.PN.HOSP.TC ---
Today's Communication/Plan
-
Transition to inpatient hospice
Maintain dignity, hygiene, and comfort of patient
Assessment / Plan
Assessment / Plan
79 y.o Male with past medical history of chronic lymphocytic leukemia, prostate cancer, GERD, hypercholesterolemia, Cnu-Bwyoved-Ekjbystzc Diabetes Mellitus presents to the emergency department with ongoing concern for weakness, jaundice,
intermittent confusion poor appetite, and weight loss. Increased thirst and increased urine output over the last 2 weeks also reported. At ER bp was 170/100. elevated total bilirubin to 9.9, AST 595 ALT in 457� and Alkaline Phosphatase of over 1075
with a lipase of 754. Glucose 486.
#Acute Liver Failure, Metastatic Disease
Thrombcytopenia 126L
AST 595 ALT in 457� and�ALP 1075-----> 755, 497,1084---> 680, 470, 1120---> 580, 432, 1160
Total Bilirubin 9.9---> 13.7--> 16.5--> 18.0
Lipase of 754
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
CT scan:
findings suggestive of hepatic and bony metastatic disease with neoplastic lymphadenopathy.
MRI abd w and w/o contrast yesterday: Innumerable hepatic metastases. Enlarged periportal and portacaval lymph nodes suggesting shirley metastases. Small nodular foci in the bilateral perinephric fat concerning for metastatic implants.
-CEA- 3.50
-CA 19-9 403H
-GGTP: 1316H
EGD/EUS - ERCP not appropriate for patient's case--- GI input appreciated
The patient is not a candidate for palliative chemotherapy due to liver failure, and there are no biliary target for stents, thus comfort care is most appropriate.-- oncology input appreciated.
#Hyperglycemia
-accu-checks, labs, insulin discontinued to transition to comfort care per family's request
#Hypertension
#Hyponatremia
#GERD
#Hyperlipidemia
Comfort care started per family's request, consent obtained. Patient care will be geared towards maximizing patient's comfort. Will ensure the dignity and hygiene of patient at this time. Patient will transition to inpatient hospice.
Code Status: DNR
Anticipated Discharge: Today
Subjective/Interval History
-
Date of Service: September 13, 2024
Some agitation and confusion noted last night, but the patient was calm when surrounded by his loved ones today.
Objective Data
-
Vital Signs:
Vital Signs
Temp Pulse Resp BP Pulse Ox
97 F 113 20 111/66 95
09/13/24 07:00 09/13/24 07:00 09/13/24 07:00 09/13/24 07:00 09/13/24 07:00
I&O
09/12/24 09/13/24 09/14/24
06:59 06:59 06:59
Intake Total 1200 / 1200 360 / 360
Output Total 1150 / 1150 150 / 150
Balance 50 / 50 210 / 210
Review of Systems
-
Unable to obtain full review of systems at this time due to: Acuity
Physical Exam
-
General: Slurred Speech and Appears Chronically Ill
HEENT: Other (Icteric)
Respiratory: Other (Labored breathing)
Cardiac: Regular Rhythm and Tachycardic
GI: Distended
Skin: Warm
Neuro: Slurred Speech
Psych: Confused
--- NOTE | 2024-09-13 17:22 | W.DCSUMMARY ---
Addendum entered and electronically signed by Timoteo Lala MD 09/13/24 21:32:
Attending Addendum-
I saw and evaluated the patient. I reviewed the resident�s note and agree with findings and plan as documented in the resident�s note. Sub: seen and examined on day of DC from acute care. Exam: Vitals reviewed in chart GEN-NAD jaundiced, HEENT- b/l
scleral icterus heart RRR lungs clear abd distended pos BS TTP RUQ +HSM incision RUQ CDI, LE trace b/l LE edema AAO x 0 no asterixis
Plan:
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
- oncology input appreciated
- MRI abd w/ w/o contrast -Innumerable hepatic metastases.Enlarged periportal and portacaval lymph nodes suggesting shirley metastases. Small nodular foci in the bilateral perinephric fat concerning for metastatic implants.
-Cholelithiasis. Gallbladder wall thickening, likely reactive.
-Splenomegaly
-Signal alteration in the spine and bilateral ribs, most suspicious for osseous metastatic disease.
- liver bx 09/10 by IR- path -Metastatic small cell neuroendocrine carcinoma
- pain control and antiemetics
- extremely poor prognosis
- maintain dignity and comfort
- transition to IP hospice
# Severe Hyperglycemia w/o DKA
# Acute Liver Injury
# Hyponatremia
# H/O CLL marginal t zone
# HLD
# Depression
# GERD
# HTN
Code status - Full Code ->DNR
Dispo transition to IP hospice
Time spent coordinating care, DC planning, review of DC plan of care with resident, transition of care, review of records, med rec/scripts sent electronically, consults, notes, d/w consultants, nursing, family, and CM� 31 mins >50% of this time was
devoted to counseling and coordination of care
Original Note:
Documented by User: Angela Anna MD, Resident 09/13/24 19:58
Discharge Summary
Discharge Data
Date of Admission: 09/07/24
Date of Discharge: 09/13/24
-
Pending Results: No
Hospital Course
Discharging Physician : Timoteo Lala MD, Angela Anna MD
Disposition : Hospital Inpatient Hospice
Primary care physician : N/A
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
Chronic Discharge diagnosis : GERD, Hyperlipidemia
Hospital Course : The patient presented to the Emergency Department for weakness, confusion, jaundice, abdominal distention, anorexia, weight loss for 2 weeks. Labs reviewed. Glucose 486. Given 1L NSS, Blood sugar down to 390. Given 8u Novolog
sq. LFT elevation noted: AST 595, ALT 457, Alkaline Phos 1075. Total bilirubin 9.9. Lipase 754. Abdominal CT completed: Numerous low density lesions throughout liver compatible with hepatic metastatic disease, enlarged periportal, portocaval,
gastrohepatic ligament regions likely metastatic lymphadenopathy. Suspicious lesions on thoracic and lumbar spine, concerning for metastatic disease. Fzjdbcaqja-hj-emsr notified of new findings.
The following problems were addressed during the admission:
#Elevated LFTs
#Metastatic Disease
Thrombocytopenia 126L
AST 595 ALT in 457� and�ALP 1075-----> 755, 497,1084---> 680, 470, 1120---> 580, 432, 1160
Total Bilirubin 9.9---> 13.7--> 16.5--> 18.0
Lipase of 754
CT scan:
findings suggestive of hepatic and bony metastatic disease with neoplastic lymphadenopathy.
MRI abdomen with and without contrast: Innumerable hepatic metastases. Enlarged periportal and portacaval lymph nodes suggesting shirley metastases. Small nodular foci in the bilateral perinephric fat concerning for metastatic implants.
-CEA- 3.50
-CA 19-9 403H
-GGTP: 1316H
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
EGD/EUS - ERCP not appropriate for patient's case--- GI input appreciated
The patient is not a candidate for palliative chemotherapy due to liver failure, and there are no biliary target for stents, thus comfort care is most appropriate.-- oncology input appreciated.
#Hyperglycemia (without DKA)
#Non-Insulin dependent Diabetes Mellitus
-Polydipsia, polyuria
--Urine glucose 4+
-Diabetes Management by COVER OPERATOR provided
-Diabetes Education provided
#Hypertension
- lisinopril 10mg
Given the poor prognosis of the condition, and after much consideration, the family has opted to place the patient into inpatient hospice. Consent acquired. Patient care will be geared towards maximizing patient's comfort while preserving the
patient's dignity and hygiene at this time.
Important imaging findings :
Abdomen/Pelvis CT (09/07/2024):
FINDINGS: CT of the abdomen and pelvis is performed with intravenous contrast and without oral contrast, per the emergency department CT protocol.
Minimal dependent atelectasis in the posterior right lower lung. There is a 1 cm bleb in the right lower lobe, on image 12 of series 201. No pulmonary nodules are seen within the visualized lower chest. There is no significant pleural effusion and
no significant pericardial effusion.
Mild bilateral gynecomastia is noted.
Dense coronary artery calcifications are present. Please correlate with symptoms of and risk factors for coronary artery disease, with further workup as clinically appropriate. Mild aortic valvular calcifications are noted.
Gallbladder appears slightly contracted. There are gallstones within the gallbladder.
There is no evidence for biliary ductal dilation.
The liver has craniocaudal dimension of 20.5 cm, enlarged. There are are numerous low-density round lesions throughout the entire liver, appearance compatible with diffuse hepatic metastatic disease, new since prior CT examination.
The main portal vein and its branches appear patent as well as the SMV and the splenic vein. Hepatic veins are patent.
There are enlarged lymph nodes in the law hepatis and portacaval region, likely representing neoplastic lymph nodes. Portal caval lymph node measures 1.7 cm in short axis dimension. There are also slightly enlarged lymph nodes in the region of the
gastrohepatic ligament, likely neoplastic lymphadenopathy.
The spleen is enlarged with maximum dimension of 14.7 cm, and the spleen appears slightly larger than previous examination, when it had maximum dimension of 13.3 cm. No evidence for a focal splenic lesion.
Both adrenal glands appear normal. The pancreas appears within normal limits.
In the left perinephric fat superior to the left kidney and adjacent to the left kidney, there are small nodular opacities which have increased from previous examination, raising concern for unusual neoplastic implants to the left perinephric space.
Small right perinephric densities are also seen, although to a lesser degree, and raises the possibility of small neoplastic implants to the right perinephric space.
Visualized pelvicalyceal systems and ureters appear within normal limits. No focal abnormality of the kidneys themselves.
Urinary bladder appears within normal limits.
Surgical clips compatible with prostatectomy.
Moderate atherosclerotic disease with calcification. Tortuosity of the abdominal aorta. The abdominal aorta has maximum AP dimension of 2.6 cm. No evidence for aneurysmal dilation of the iliac arteries.
The appendix appears normal. There is no evidence for bowel obstruction or free intraperitoneal air. No convincing findings for diverticulitis.
Mild levoconvex scoliosis centered at L2-3. Moderate to severe diffuse changes of degenerative disc disease in the lower lumbar spine and thoracic spine.
There are subtle small lytic foci within the thoracic spine and lumbar spine, and these are suspicious for bony metastatic lesions. No gross evidence for epidural extension or epidural spread of bony metastatic disease.
Vertebral body heights are maintained. Mild degenerative change of both hip joints.
IMPRESSION: Numerous low-density lesions throughout the liver, compatible with hepatic metastatic disease.
Enlarged lymph nodes in the periportal, portacaval, and gastrohepatic ligament region, likely neoplastic lymphadenopathy.
Splenomegaly, slightly increased since prior CT. No focal splenic lesions are identified.
Subtle small lytic lesions within the visualized thoracic and lumbar spine, suspicious for bony metastatic disease.
Small densities within the perinephric fat bilaterally, new since prior examination, and suspicious for small neoplastic retroperitoneal implants
Chest X-Ray (09/07/2024):
FINDINGS: There is slight enlargement of the left hilar shadow on both frontal and lateral views, which appears new from previous radiograph. Additionally, there is a band of increased opacity in the left perihilar region, new from previous
examination, suspicious for a focus of atelectasis.
On the lateral view, there is also ill-defined opacity projecting over the posterior mid to lower lungs, but poorly defined.
Findings raise concern for central mass and possible bronchogenic carcinoma. Pneumonia could've a similar appearance. Given the findings on CT of the abdomen and pelvis, consider further evaluation with a CT of the chest, with intravenous contrast
if there are no contraindications.
The right lung appears radiographically clear. There is no evidence for significant pleural effusion bilaterally.
Overall cardiac silhouette size appears within normal limits.
IMPRESSION:
Left hilar shadow appears to be enlarged. Band of increased density in the left perihilar region, suggesting atelectasis.
Subtle increased density in the posterior mid to lower lungs on the lateral view, but poorly defined.
Findings raise concern for a left central neoplasm. Pneumonia would be a differential consideration.
As warranted, consider further evaluation with CT of the chest, with intravenous contrast if there are no contraindications.
Abdomen MRI (09/08/2024):
FINDINGS:
Portions of the examination are limited by motion artifact.
CHEST: The lung bases are clear.
ABDOMEN:
Innumerable lesions throughout the liver parenchyma compatible with hepatic metastatic disease. These show hyperintense T2 signal, hypointense T1 signal, restricted diffusion, and hypoenhancement. The liver is mildly enlarged and measures 20 cm in
length.
Low signal intensity gallstones in the gallbladder lumen. Partially contracted gallbladder. Diffuse gallbladder wall thickening, more likely to be reactive. No intrahepatic or extrahepatic bile duct dilatation. The main pancreatic duct is
nondilated. The pancreas and bilateral adrenal glands are unremarkable. The spleen is enlarged and measures 14.9 cm in length. The bilateral kidneys are within normal limits. No hydronephrosis.
The abdominal aorta is normal in caliber.
The portal, splenic, and superior mesenteric veins are patent. Retroaortic left renal vein, an anatomic variant.
Periportal and portacaval lymphadenopathy. Small nodular enhancing foci in the retroperitoneum within the bilateral perinephric fat, left greater than right.
Trace pelvic ascites.
SKELETON: Chronic degenerative changes of the spine. Heterogeneous signal intensity and restricted diffusion throughout the imaged spine and bilateral ribs.
IMPRESSION:
Innumerable hepatic metastases.
Enlarged periportal and portacaval lymph nodes suggesting shirley metastases. Small nodular foci in the bilateral perinephric fat concerning for metastatic implants.
Cholelithiasis. Gallbladder wall thickening, likely reactive.
Splenomegaly
Signal alteration in the spine and bilateral ribs, most suspicious for osseous metastatic disease.
Procedure findings :
Liver Biopsy (09/10/2024): Metastatic small cell neuroendocrine carcinoma
Discharge Plan
-
Patient Disposition: Hospice - Inpatient [facility]
Discharge Orders:
Discharge Patient (As Directed); Ordered 09/13/24
Ordered By: Angela Anna
Discharge Date and Time
Discharge Date/Time: 09/13/24 13:19
Print Language: MARSHALLESE

Documented by User: Timoteo Lala MD 09/13/24 21:29
Discharge Summary
Discharge Data
Date of Admission: 09/07/24
Date of Discharge: 09/13/24
Discharge Plan
-
Patient Disposition: Hospice - Inpatient [facility]
Discharge Orders:
Discharge Patient (As Directed); Ordered 09/13/24
Ordered By: Angela Anna
Discharge Date and Time
Discharge Date/Time: 09/13/24 13:19
Print Language: MARSHALLESE
== END 2024-09-13 13:19 | disposition hospice, inpatient (51) | DRG 843 ==
LOC: 2 NORTH 20:49
PROVIDERS: Hospitalist; Nurse Practitioner; Nurse Practitioner Family; Radiology Vascular & Interventional Radiology; ADMITTING PHYSICIAN Internal Medicine; ATTENDING PHYSICIAN Family Medicine; CONSULT PHYSICIAN Internal Medicine Gastroenterology; EMERGENCY PHYSICIAN Emergency Medicine; FAMILY PHYSICIAN Internal Medicine; OTHER PHYSICIAN Internal Medicine Hematology & Oncology
PROC: 0FB13ZX Excision of Right Lobe Liver, Percutaneous Approach, Diagnostic (ICD-10-PCS; 2024-09-10)
DX: C7A.8 Other malignant neuroendocrine tumors (principal); K72.00 Acute and subacute hepatic failure without coma; C91.11 Chronic lymphocytic leukemia of B-cell type in remission; J98.11 Atelectasis; E87.1 Hypo-osmolality and hyponatremia; K80.21 Calculus of gallbladder without cholecystitis with obstruction; C7A.1 Malignant poorly differentiated neuroendocrine tumors; Z51.5 Encounter for palliative care; E11.65 Type 2 diabetes mellitus with hyperglycemia; D69.6 Thrombocytopenia, unspecified; M06.9 Rheumatoid arthritis, unspecified; E78.00 Pure hypercholesterolemia, unspecified; F32.A Depression, unspecified; R74.01 Elevation of levels of liver transaminase levels; I10 Essential (primary) hypertension; K21.9 Gastro-esophageal reflux disease without esophagitis; R63.0 Anorexia; N62 Hypertrophy of breast; M51.369 Other intervertebral disc degeneration, lumbar region without mention of lumbar back pain or lower extremity pain; M51.34 Other intervertebral disc degeneration, thoracic region; M41.9 Scoliosis, unspecified; I25.10 Atherosclerotic heart disease of native coronary artery without angina pectoris; Z66 Do not resuscitate; Z60.2 Problems related to living alone; Z85.46 Personal history of malignant neoplasm of prostate; Z79.84 Long term (current) use of oral hypoglycemic drugs; Z88.1 Allergy status to other antibiotic agents; Z85.72 Personal history of non-Hodgkin lymphomas; Z90.79 Acquired absence of other genital organ(s)
CPT/HCPCS: 47000; 71046; 74177; 74183; 76942; 80053; 80061; 81003; 81015; 82140; 82248; 82378; 82962; 82977; 83036; 83690; 83735; 85025; 85027; 85610; 86301; 88307; 88333; 88341; 88342; 96360; 96374; 97163; 97530; 99152; 99153; 99285; A9575; G0103; Q9967

== ENCOUNTER 2024-09-13 13:28 | Inpatient (IN) | payer OTHER, SELFPAY ==
[2024-09-13 08:00] VITALS: BP 111/66
[2024-09-13 13:51] VITALS: BMI 28.7
[2024-09-13] MEDS: ATIVAN 1 MG PO (16:13)
[2024-09-13] MEDS: MORPHINE SULFATE 2 MG IV (16:13)
[2024-09-13] MEDS: TYLENOL 650 MG PO (16:22)
--- NOTE | 2024-09-13 17:26 | HPS.HSE ---
Addendum entered and electronically signed by Timoteo Lala MD 09/13/24 21:27:
Attending Addendum-
I saw and evaluated the patient. I reviewed the resident�s note and agree with findings and plan as documented in the resident�s note. Sub: patient progressive and rapidly declined during hospital course. decision made to place patient on hospice.
seen with son and his , patient confused but able to answer question stating he is not in pain. ROS reviewed and attempted but unable due to MS Exam: Vitals reviewed in chart GEN-NAD jaundiced, HEENT- b/l scleral icterus heart RRR lungs clear
abd distended pos BS TTP RUQ +HSM incision RUQ CDI, LE trace b/l LE edema AAO x 0 no asterixis
Plan:
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
- oncology input appreciated
- MRI abd w/ w/o contrast -Innumerable hepatic metastases.Enlarged periportal and portacaval lymph nodes suggesting shirley metastases. Small nodular foci in the bilateral perinephric fat concerning for metastatic implants.
-Cholelithiasis. Gallbladder wall thickening, likely reactive.
-Splenomegaly
-Signal alteration in the spine and bilateral ribs, most suspicious for osseous metastatic disease.
- liver bx 09/10 by IR- path -Metastatic small cell neuroendocrine carcinoma
- pain control and antiemetics
- extremely poor prognosis
- maintain dignity and comfort
- imminent
- start IP hospice
# Severe Hyperglycemia w/o DKA
# Acute Liver Injury
# Hyponatremia
# H/O CLL marginal t zone
# HLD
# Depression
# GERD
# HTN
DVT PX - none
Code status - Full Code ->DNR
Dispo transition to IP hospice POA has chosen this attending as primary for IP hospice care
ACP
Patient unable to consented to discuss, was with son and family, time spent explanation of advance directives, changes in health status, patient�s health care wishes if the patient becomes unable to make health decisions, goals of care, code status,
and prognosis- 16 minutes
Time spent coordinating care, review of plan of care with resident, personally reviewed previous records in EMR, med rec, labs, radiology, d/w nursing, family total time documented is exclusive of any additional time listed that was spent in advance
care planning discussion -�55 minutes
Original Note:
Family Physician
-
Family Physician: NO INTERVIEW UNKNOWN
Chief Complaint
-
Hospice
History of Present Illness
79 y.o Male with past medical history of chronic lymphocytic leukemia, prostate cancer, GERD, hypercholesterolemia, Jcv-Ivlgtlb-Xmcqlybko Diabetes Mellitus presents to the emergency department with ongoing concern for weakness, jaundice,
intermittent confusion poor appetite, and weight loss. Increased thirst and increased urine output over the last 2 weeks also reported. At Emergency department, the following were noted to be elevated: total bilirubin 9.9, AST 595 ALT 457� and
Alkaline Phosphatase 1075, lipase at [address] and MRI imaging studies suggests extensive metastases and liver biopsy confirms metastatic small cell neuroendocrine carcinoma. The family was informed of the poor prognosis of the disease
and after much consideration, the family opted to place the patient in comfort care, later transitioning to inpatient hospice services.
Medical History
Past Medical History
Past Medical History: Reports Cancer (CLL, Prostate Cancer), GERD, Hypercholesterolemia and NIDDM
Past Surgical History: Reports Tonsilectomy
Additional Past Surgical History:
Prostate-Radical Prostatectomy
Social History
Unable to obtain full social history at this time due to: Acuity
Family History
Family History: Not pertinent
Allergies / Home Medications
Allergies reflects when Allergies were last updated in [facility].
Home Medications with original date entered in [facility]
Allergy/Medication List:
Allergies
Allergy/AdvReac Type Severity Reaction Status Date / Time
vancomycin (Vancomycin) Allergy RASH/HAND Verified 09/07/24 15:38
BLANCHING
Home Medications
amitriptyline 50 mg tablet 50 mg PO HS 09/24/09
ascorbic acid-bioflavonoids 500 mg-200 mg tablet 2 tab PO Supplement 09/24/09
calcium 500 mg-vitamin D3 100 unit-vitamin K 40 mcg chewable tablet 1 ea PO 3XW Supplement 09/24/09
esomeprazole magnesium 40 mg capsule,delayed release (Nexium) 40 mg PO DAILY Gastrointestinal Issue 09/24/09
glucosamine HCl 500 mg tablet 3,000 mg PO TID Supplement 09/24/09
loratadine 5 mg disintegrating tablet (Claritin RediTabs) 5 mg PO DAILY 09/24/09
multivit with nh-FS-fnskkgvk-omega 3,6,9 no.3 400 mcg-300 mcg capsule (Men's 50+ Advanced Multivitamin) 2 ea PO DAILY Supplement 09/24/09
omega-3 fatty acids 100 mg chewable tablet 200 mg PO DAILY Supplement 09/24/09
Review of Systems
-
Unable to obtain full review of systems at this time due to: Acuity
Physical Exam
Vital Signs
Vital Signs
Temp Pulse Resp BP Pulse Ox
97 F 113 20 111/66 95
09/13/24 08:00 09/13/24 08:00 09/13/24 08:00 09/13/24 08:00 09/13/24 08:00
Physical Exam
General: Slurred Speech and Appears Chronically Ill
HEENT: NormoCephalic, Atraumatic and Other (Icteric sclera)
Respiratory: Other (Labored respiration)
Cardiac: Regular Rhythm and Tachycardia
GI: Soft, Distended and Other (Hypoactive bowel sounds)
Skin: Warm and Jaundice
Neuro: Slurred Speech
Psych: Confused
Impression/Plan
-
IMPRESSION:
#Metastatic small cell neuroendocrine carcinoma
#Btp-Augsjjf-Lcotwwowy Diabetes Mellitus
#Hypertension
#Hyponatremia
#GERD
#Hyperlipidemia
PLAN:
Given the poor prognosis of the condition, and after much consideration, the family has opted to place the patient into inpatient hospice. Patient care will be geared towards maximizing patient's comfort while preserving the patient's dignity and
hygiene at this time.
--- NOTE | 2024-09-13 18:25 | HOSPNOTE ---
Patient admitted to Hospice GIP level of care for the management of pain and agitation with the need for nursing assessments and IV medications that can not be managed in an outpatient environment. Case discussed with Dr Vance and Ninfa Morris,
CONSULTANT (Hospice) and they are in agreement. Discharge planning to commence once symptoms are managed.
[2024-09-13 19:20] VITALS: BP 114/63
[2024-09-14] MEDS: MORPHINE SULFATE 2 MG IV ×6 (03:24→17:03)
[2024-09-14] MEDS: FLUSH (NSS) 2 FLUSH IV (03:26)
[2024-09-14 07:05] VITALS: BP 110/69
--- NOTE | 2024-09-14 07:17 | W.PN.HOSP.TC ---
Today's Communication/Plan
-
Maintain hospice care
Assessment / Plan
Assessment / Plan
79 y.o Male with past medical history of chronic lymphocytic leukemia, prostate cancer, GERD, hypercholesterolemia, Kwz-Txqundy-Fmgfnvuky Diabetes And new diagnosis of metastatic small cell neuroendocrine carcinoma with worsening LFTs; family opted
for hospice.
# Metastatic small cell Neuroendocrine carcinoma
--dominant cholestatic pattern with possible bony/spine and retroperitoneal mets with jaundice without evidence of extrahepatic biliary obstruction and lung mass
--liver bx 09/10 by IR- path -Metastatic small cell neuroendocrine carcinoma
--pain control and antiemetics
--extremely poor prognosis
--maintain dignity and comfort
-- imminent
--Maintain hospice care
# Severe Hyperglycemia w/o DKA
# Acute Liver Injury
# Hyponatremia
# H/O CLL
# HLD
# Depression
# GERD
# HTN
DVT PX - none
CODE STATUS DNR
Anticipated Discharge: 24 - 48 hours
Subjective/Interval History
-
Date of Service: September 14, 2024
Seen and examined at bedside. Offers no new complaints. Does not appear to be in distress at this time.
Objective Data
-
Vital Signs:
Vital Signs
Temp Pulse Resp BP Pulse Ox
98.8 F 118 18 114/63 98
09/13/24 19:20 09/13/24 19:20 09/13/24 19:20 09/13/24 19:20 09/13/24 19:20
I&O
09/13/24 09/14/24 09/15/24
06:59 06:59 06:59
Intake Total 240 / 240
Balance 240 / 240
Review of Systems
-
History Source: Patient
All other systems: Reviewed and negative (Unless noted)
Physical Exam
-
General: Appears Chronically Ill
HEENT: Other (Icteric)
Respiratory: Other (Labored breathing)
Cardiac: Regular Rhythm and Tachycardic
GI: Distended
Skin: Warm
Neuro: Other (Sleepy)
Psych: Calm
Data Reviewed
-
Old Records: Reviewed
[2024-09-14] MEDS: TYLENOL/FEVERALL 650 MG RECTAL ×2 (11:55→16:00)
--- NOTE | 2024-09-14 15:47 | HOSPNOTE ---
patient unresponsive during visit. Breathing mildly labored RR 22, using accessory muscles. Flacc 1 mild. Flacc elevated with care or transitional movement. Coordinated care with Mee STEPHENSON. Morphine to be given for elevated FLACC. Son and DIL at
bedside. Reports that patient has had no PO intake since yesterday afternoon. Per son, only interaction today was with the Monsignor patient and opened eyes then closed them again. Appears active. Discussed limited life expectancy is hours to days.
Mottled lower extremities. ELevated temp. Son and daughter emotional and tearful. Provided emotional support. Patient required 3 PRN doses of IV morphine and 1 dose of IV ativan since admission yesterday afternoon. Will remain GIP for management of
symptoms requiring IV medication. Discharge planning to continue.
[2024-09-14] MEDS: MORPHINE 100 IV (17:06)
--- NOTE | 2024-09-14 17:57 | PTCARENOTE ---
Throughout afternoon pt became more dyspneic requiring PRN IV morphine. Family at bedside. Morphine gtt initiated per protocol.
--- NOTE | 2024-09-14 18:04 | PTCARENOTE ---
Pt with temps today- rectal tylenol given x 2.
--- NOTE | 2024-09-14 18:21 | W.DCSUMMARY ---
Documented by User: Damaso Lanza MD, Resident 09/15/24 08:38
Discharge Summary
Discharge Data
Date of Admission: 09/13/24
Date of Discharge: 09/14/24
-
Pending Results: No
Hospital Course
Discharging Physician : Damaso Lanza MD ; Rony Perez DO
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
Hospital Course : This is a 79-year-old male with past medical history significant for prior prostate cancer and CLL, GERD, [id number] diabetes and hyperlipidemia who presented to the emergency department with ongoing concern for
jaundice, intermittent confusion poor appetite and weakness.
His LFTs continue to rise during his hospital stay. CAT scan was obtained which showed numerous numerous low-density lesions throughout the liver and there was suspicion of hepatic metastatic disease. There was also enlarged lymph nodes in the
periportal, portacaval, and gastrohepatic ligament region, likely neoplastic lymphadenopathy. There were some small lytic lesions within the visualized thoracic and lumbar spine that and that was suspicious of bony mets. GI was consulted however
they did not recommend any ERCP. Oncology was consulted and plan was made for a liver biopsy with IR. And also tumor markers were checked. Which showed CA 19.9 elevated to 403. In the meantime MRI was also obtained which confirmed the
innumerable hepatic mets and notable sihrley metastasis. Path report from the biopsy showed neuroendocrine carcinoma. Oncology recommended that he is not a candidate for palliative chemotherapy due to liver failure and there is no ability targets for
stents. After lengthy discussion with family decision was made to consider comfort care and eventually he was transferred to the hospice service. Patient was kept comfortable with no signs of distress on periodic physical exam. Patient was found
to be nonresponsive by the nurse around 6:15 PM on 09/14/2024. Upon further examination patient was pronounced .
Important imaging findings : CT Abd/pelvis W Iv Cont
Numerous low-density lesions throughout the liver, compatible with hepatic metastatic disease.
Enlarged lymph nodes in the periportal, portacaval, and gastrohepatic ligament region, likely neoplastic lymphadenopathy.
Splenomegaly, slightly increased since prior CT. No focal splenic lesions are identified.
Subtle small lytic lesions within the visualized thoracic and lumbar spine, suspicious for bony metastatic disease.
Small densities within the perinephric fat bilaterally, new since prior examination, and suspicious for small neoplastic retroperitoneal implants.
CR Chest -Left hilar shadow appears to be enlarged. Band of increased density in the left perihilar region, suggesting atelectasis.
Subtle increased density in the posterior mid to lower lungs on the lateral view, but poorly defined.
Findings raise concern for a left central neoplasm. Pneumonia would be a differential consideration.
MR Abdomen W/o & W Contrast: Innumerable hepatic metastases.
Enlarged periportal and portacaval lymph nodes suggesting shirley metastases. Small nodular foci in the bilateral perinephric fat concerning for metastatic implants.
Cholelithiasis. Gallbladder wall thickening, likely reactive.
Splenomegaly
Signal alteration in the spine and bilateral ribs, most suspicious for osseous metastatic disease.
Procedure findings : Ultrasound guided liver mass biopsy.
Discharge Plan
-
Patient Disposition:
Date/Time
Date/Time: 09/14/24 18:15
Discharge Date and Time
Discharge Date/Time: 09/14/24 23:43
Print Language: URDU

Documented by User: Flavia Salvador MD 09/14/24 18:51
Discharge Summary
Discharge Data
Date of Admission: 09/13/24
Date of Discharge: 09/14/24
Discharge Plan
-
Patient Disposition:
Date/Time
Date/Time: 09/14/24 18:15
Discharge Date and Time
Discharge Date/Time: 09/14/24 23:43
Print Language: URDU
--- NOTE | 2024-09-14 18:31 | W.PN.DEATH ---
Pronouncement of
-
Called to see patient to pronounce.
No spontaneous heart tones or respirations noted.
Patient not responsive to verbal stimuli.
Patient is pronounced .
Time of : 18:15
Date of : 09/14/24
Cause of : Metastatic small cell neuroendocrine tumor
Family Notified: Yes
--- NOTE | 2024-09-14 18:37 | W.DCSUMMARY ---
Discharge Summary
Discharge Data
Date of Admission: 09/13/24
Date of Discharge: 09/14/24
-
Pending Results: No
Discharge Plan
-
Patient Disposition:
Date/Time
Date/Time: 09/14/24 18:15
Discharge Date and Time
Print Language: INDONESIAN
--- NOTE | 2024-09-14 19:29 | PTCARENOTE ---
Checked on patient at 181 and patient found with no spontaneous heart tones or respirations noted. Patient not responsive to verbal stimuli. TT sent to Dr Perez, resident and cross coverage, Dr Salvador. Dr Salvador came to floor and pronounced and
also called patients son. [facility] life notified per protocol. Morphine gtt wasted with another RN.
--- NOTE | 2024-09-14 22:28 | PTCARENOTE ---
Prayer blanket remains on patient per family request.
== END 2024-09-14 18:15 | disposition expired | DRG 951 ==
LOC: 2 NORTH 13:28
PROVIDERS: ADMITTING PHYSICIAN Family Medicine; ATTENDING PHYSICIAN Internal Medicine
DX: Z51.5 Encounter for palliative care (principal); K72.00 Acute and subacute hepatic failure without coma; C7B.8 Other secondary neuroendocrine tumors; C7A.8 Other malignant neuroendocrine tumors; E87.1 Hypo-osmolality and hyponatremia; K80.20 Calculus of gallbladder without cholecystitis without obstruction; R16.2 Hepatomegaly with splenomegaly, not elsewhere classified; E11.65 Type 2 diabetes mellitus with hyperglycemia; R59.1 Generalized enlarged lymph nodes; E78.00 Pure hypercholesterolemia, unspecified; F32.A Depression, unspecified; K21.9 Gastro-esophageal reflux disease without esophagitis; I10 Essential (primary) hypertension; Z66 Do not resuscitate; Z85.46 Personal history of malignant neoplasm of prostate; Z85.6 Personal history of leukemia; Z88.1 Allergy status to other antibiotic agents